=== PATIENT | male | born 1940 | race Caucasian/White ===

== ENCOUNTER 2016-07-04 21:55 | Inpatient (IN) | payer MEDICARE, MEDICAID ==
[2016-07-04] MEDS ORDERED: Furosemide 40 MG/4 ML VIAL IVPUSH ONE ×2 (22:23→23:52)
[2016-07-04] MEDS ORDERED: Albuterol/Ipratropium 3.0-0.5 MG/3 ML Neb Soln NEB ONE (22:23)
[2016-07-04] MEDS: Sodium Chloride 0.9% 10 ML Syringe FLUSH PRN ×2 (22:58→23:58)
--- NOTE | 2016-07-04 23:19 | EDM.PDOC ---
ED HISTORY OF PRESENT ILLNESS - General Chief Complaint: Respiratory Problem Stated Complaint: RESPIRATORY Time Seen by Provider: 07/04/16 22:15 Source: Reports: Patient History Limitations: Reports: No limitations - History of Present Illness INITIAL COMMENTS - FREE TEXT/NARRATIVE: c/o sob x 1w DNR, from group home, comes to ED at request of daughter, had been to ED in [place] 2d ago, not on antbxs, not on nebs has coarse BS although PO 95%, considerable edema in legs mouth breathing with noisy respirations, [facility] CPAP [facility] no fever here or [facility] he is transfered for CHF exacerbation wtih 3+ edema to [facility] in [facility] vs at [place] with HR 69, BP 68/42 (altho wnl here), T 97.8, RR 20 wt last 262 on 07-03-16, was 238 on 06-21-16 ADLs: assist with dress and toilit and eat, in chair most of time, has contractures, dependent for transfers, frequent incontinent of bladder PMH: CKD stage 3, muscle weakness, sepsis, Fe deficiency anemia d/t chronic blood loss, DM, HF, ABIDA, afib, osteoporosis, hypokalemia, BPH, deepression, constipation, gastritis, cellulitis PSH gastric surgery - Related Data Allergies/ADRs: Allergies Allergy/AdvReac Type Severity Reaction Status Date / Time Penicillins Allergy Cannot Verified 01/16/16 12:36 Remember Home Meds: Home Meds Insulin Detemir [Levemir] 10 unit SQ DAILY@0800 10/02/13 [History] Warfarin [Coumadin] 2.5 mg PO DAILY 10/02/13 [History] Insulin Detemir [Levemir] 4 unit SUBCUT BEDTIME 01/28/14 [History] Calcium Carbonate/Vitamin D3 [Calcium 600-Vit D3 800 Tablet] 1 tab PO BID [History] Cholecalciferol (Vitamin D3) [Vitamin D3] 1,000 units PO DAILY 09/22/14 [History ] Melatonin 3 mg PO BEDTIME 09/22/14 [History] Acetaminophen with Codeine [Tylenol with Codeine #3 Tablet] 2 tab PO TID [History] FLUoxetine HCl [Prozac] 10 mg PO DAILY 11/24/15 [History] Loperamide [Imodium] 2 mg PO ASDIRECTED 11/24/15 [History] Tamsulosin [Flomax] 0.4 mg PO DAILY 11/24/15 [History] Acetaminophen [Mapap] 650 mg PO Q4H PRN 12/31/15 [History] Alum Hydrox/Mag Hydrox/Simeth [Maalox Advanced] 15 ml PO Q4H PRN 12/31/15 [ History] Bisacodyl 10 mg RECTAL DAILY PRN 12/31/15 [History] Calcium Carbonate [Tums] 1,000 mg PO TID PRN 12/31/15 [History] Cholestyramine/Sucrose [Cholestyramine] 4 gm PO WITHBREAKFAST 12/31/15 [History] Dextromethorphan/guaiFENesin [Robitussin DM] 10 ml PO Q4H PRN 12/31/15 [History] Furosemide [Lasix] 60 mg PO DAILY 12/31/15 [History] Magnesium Hydroxide [Milk of Magnesia] 30 ml PO DAILY 12/31/15 [History] Multivitamin with Minerals [Ohg-R-Tgat-Minerals] 1 tab PO DAILY 12/31/15 [ History] Ondansetron [Zofran ODT] 4 mg SL Q4H PRN 12/31/15 [History] Pantoprazole [Protonix] 40 mg PO ACBREAKFAST 12/31/15 [History] Phytonadione [Vitamin K] 100 mcg PO DAILY 12/31/15 [History] Trolamine Salicylate/Aloe Vera [Aspercreme 10% Cream] 1 applic TOP DAILY [History] Ferrous Sulfate 325 mg PO BID 01/16/16 [History] Past Medical History HEENT History: Reports: None Cardiovascular History: Reports: Afib, Heart Failure, Hypertension Respiratory History: Reports: Sleep apnea Gastrointestinal History: Reports: None Genitourinary History: Reports: BPH, Chronic renal insuffiency Musculoskeletal History: Reports: Other (see below) Other Musculoskeletal History: has bilateral contractures legs Neurological History: Reports: None Psychiatric History: Reports: Depression Endocrine/Metabolic History: Reports: Diabetes, type II Hematologic History: Reports: None Immunologic History: Reports: None Oncologic (Cancer) History: Reports: None Dermatologic History: Reports: None - Infectious Disease History Infectious Disease History: Reports: MRSA - Past Surgical History Cardiovascular Surgical History: Reports: Pacer GI Surgical History: Reports: Appendectomy, Cholecystectomy Social & Family History - Family History Cardiac: Reports: CAD - Tobacco Use Smoking Status *Q: Unknown Ever Smoked Years of Tobacco use: 50 Used Tobacco, but Quit: Yes Second Hand Smoke Exposure: No - Caffeine Use Caffeine Use: Reports: None - Alcohol Use Days Per Week of Alcohol Use: 0 - Recreational Drug Use Recreational Drug Use: No - Living Situation & Occupation Living situation: Reports: , extended care facility Occupation: retired ED ROS GENERAL - Review of Systems Review Of Systems: See Below Constitutional: Reports: no symptoms HEENT: Reports: No symptoms Respiratory: Reports: shortness of breath, wheezing, cough, sputum Cardiovascular: Reports: No symptoms Endocrine: Reports: no symptoms GI/Abdominal: Reports: No symptoms : Reports: no symptoms Musculoskeletal: Reports: no symptoms Skin: Reports: other (LE edema) Neurological: Reports: no symptoms Psychiatric: Reports: No symptoms Hematologic/Lymphatic: Reports: no symptoms Immunologic: Reports: no symptoms ED EXAM, GENERAL - Physical Exam Exam: See Below Exam Limited By: No limitations General Appearance: alert, WD/WN, no apparent distress Eye Exam: bilateral eye: normal inspection Ears: normal external exam Nose: normal inspection Throat/Mouth: Normal inspection, Normal lips, Normal gums, Normal oropharynx, No airway compromise Head: atraumatic, normocephalic Neck: normal inspection, supple, non-tender Respiratory/Chest: other (fair AE, I/E wheezes, upper airway obstruction, on NC , not using CPAP, scattered rales b/l) Cardiovascular: normal peripheral pulses, regular rate, rhythm, no gallop, other (2/6 CHELO at LSB) GI/Abdominal: soft, non tender Extremities: other (3+ edema of LEs to knees b/l, mild rubra of skin d/t vascular congestion without evidence of cellulitis, 2+ edema from knees to groin b/l) Skin Exam: Warm, Dry, Intact, Normal color, No rash Lymphatic: no adenopathy Course - Vital Signs Last Recorded V/S: Last Vital Signs Temp 35.8 C 07/04/16 22:23 Pulse 84 07/04/16 22:23 Resp 20 07/04/16 22:23 BP 161/111 H 07/04/16 22:23 Pulse Ox 3 L 07/04/16 22:23 - Orders/Labs/Meds Orders: Active Orders 24 hr Category Date Time Status EKG Documentation Completion [RC] ASDIRECTED Care 07/04/16 23:06 Active Daniels Catheter Insertion [Insert Urinary Catheter] [OM. Care 07/04/16 23:15 Ordered PC] Q24H RT Aerosol Therapy [RC] ASDIRECTED Care 07/04/16 22:23 Active Urinary Catheter Assessment [RC] QSHIFT Care 07/04/16 23:04 Active Chest 1V Frontal [CR] Stat Exams 07/04/16 23:07 Ordered CULTURE BLOOD [BC] Urgent Lab 07/04/16 23:33 Received CULTURE SPUTUM + SMEAR [RM] Stat Lab 07/04/16 23:02 Uncollected INFLUENZA A+B AG SCREEN [RM] Stat Lab 07/04/16 23:04 Uncollected UA W/MICROSCOPIC [URIN] Stat Lab 07/04/16 23:02 Uncollected Sodium Chloride 0.9% [Saline Flush] Med 07/04/16 22:55 Active 10 ml FLUSH ASDIRECTED PRN Blood Culture x2 Reflex Set [OM.PC] Urgent Oth 07/04/16 23:05 Ordered Saline Lock Insert [OM.PC] Routine Oth 07/04/16 22:55 Ordered EKG 12 Lead [EK] Routine Ther 07/04/16 23:06 Ordered Medication Orders Sodium Chloride (Saline Flush) 10 ml FLUSH ASDIRECTED PRN PRN Reason: Keep Vein Open Last Admin: 07/04/16 23:58 Dose: 10 ml Admin: 07/04/16 22:58 Dose: 10 ml Labs: Laboratory Tests 07/04/16 07/04/16 07/04/16 Range/Units 23:33 23:33 23:33 WBC 9.8 (4.5-12.0) X10-3/uL RBC 2.81 L (4.30-5.75) x10(6)uL Hgb 7.9 L (11.5-15.5) g/dL Hct 28.1 L (30.0-51.3) % MCV 100.1 H (80-96) fL MCH 28.2 (27.7-33.6) pg MCHC 28.2 L (32.2-35.4) g/dL RDW 15.7 H (11.5-15.5) % Plt Count 187 (125-369) X10(3)uL MPV 8.3 (7.4-10.4) fL Add Manual Diff Yes Neutrophils % (Manual) 82 (46-82) % Band Neutrophils % 4 (0-6) % Lymphocytes % (Manual) 10 L (13-37) % Monocytes % (Manual) 4 (4-12) % PT (8.7-11.1) INR (0.89-1.13) Sodium 133 L (135-145) mmol/L Potassium 4.8 (3.5-5.3) mmol/L Chloride 104 (100-110) mmol/L Carbon Dioxide 22 L (23-29) mmol/L BUN 49 H D (8-23) mg/dL Creatinine 1.3 (0.6-1.3) mg/dL Est Cr Clr Drug Dosing 53.89 mL/min Estimated GFR (MDRD) 54 L (>60) BUN/Creatinine Ratio 37.7 H (9-20) Glucose 159 H D (80-116) mg/dL Lactic Acid 1.5 (0.5-2.2) mmol/L Calcium 7.6 L (8.6-10.2) mg/dL Total Bilirubin 1.4 H (0.1-1.3) mg/dL AST 35 H D (5-27) IU/L ALT 29 H D (14-26) IU/L Alkaline Phosphatase 286 H (56-112) IU/L Troponin I (0.02-0.06) NG/ML C-Reactive Protein 2.8 H* (0.0-1.0) mg/dL B-Natriuretic Peptide (0-100) pg/mL Total Protein 5.7 L (6.0-8.0) g/dL Albumin 2.3 L (3.2-4.6) g/dL Globulin 3.4 g/dL Albumin/Globulin Ratio 0.7 Digoxin (0.8-2.0) ng/mL 07/04/16 07/04/16 07/04/16 Range/Units 23:33 23:33 23:33 WBC (4.5-12.0) X10-3/uL RBC (4.30-5.75) x10(6)uL Hgb (11.5-15.5) g/dL Hct (30.0-51.3) % MCV (80-96) fL MCH (27.7-33.6) pg MCHC (32.2-35.4) g/dL RDW (11.5-15.5) % Plt Count (125-369) X10(3)uL MPV (7.4-10.4) fL Add Manual Diff Neutrophils % (Manual) (46-82) % Band Neutrophils % (0-6) % Lymphocytes % (Manual) (13-37) % Monocytes % (Manual) (4-12) % PT 17.7 H (8.7-11.1) INR 1.79 H (0.89-1.13) Sodium (135-145) mmol/L Potassium (3.5-5.3) mmol/L Chloride (100-110) mmol/L Carbon Dioxide (23-29) mmol/L BUN (8-23) mg/dL Creatinine (0.6-1.3) mg/dL Est Cr Clr Drug Dosing mL/min Estimated GFR (MDRD) (>60) BUN/Creatinine Ratio (9-20) Glucose (80-116) mg/dL Lactic Acid (0.5-2.2) mmol/L Calcium (8.6-10.2) mg/dL Total Bilirubin (0.1-1.3) mg/dL AST (5-27) IU/L ALT (14-26) IU/L Alkaline Phosphatase (56-112) IU/L Troponin I < 0.01 L (0.02-0.06) NG/ML C-Reactive Protein (0.0-1.0) mg/dL B-Natriuretic Peptide 334 H (0-100) pg/mL Total Protein (6.0-8.0) g/dL Albumin (3.2-4.6) g/dL Globulin g/dL Albumin/Globulin Ratio Digoxin (0.8-2.0) ng/mL 07/04/16 Range/Units 23:33 WBC (4.5-12.0) X10-3/uL RBC (4.30-5.75) x10(6)uL Hgb (11.5-15.5) g/dL Hct (30.0-51.3) % MCV (80-96) fL MCH (27.7-33.6) pg MCHC (32.2-35.4) g/dL RDW (11.5-15.5) % Plt Count (125-369) X10(3)uL MPV (7.4-10.4) fL Add Manual Diff Neutrophils % (Manual) (46-82) % Band Neutrophils % (0-6) % Lymphocytes % (Manual) (13-37) % Monocytes % (Manual) (4-12) % PT (8.7-11.1) INR (0.89-1.13) Sodium (135-145) mmol/L Potassium (3.5-5.3) mmol/L Chloride (100-110) mmol/L Carbon Dioxide (23-29) mmol/L BUN (8-23) mg/dL Creatinine (0.6-1.3) mg/dL Est Cr Clr Drug Dosing mL/min Estimated GFR (MDRD) (>60) BUN/Creatinine Ratio (9-20) Glucose (80-116) mg/dL Lactic Acid (0.5-2.2) mmol/L Calcium (8.6-10.2) mg/dL Total Bilirubin (0.1-1.3) mg/dL AST (5-27) IU/L ALT (14-26) IU/L Alkaline Phosphatase (56-112) IU/L Troponin I (0.02-0.06) NG/ML C-Reactive Protein (0.0-1.0) mg/dL B-Natriuretic Peptide (0-100) pg/mL Total Protein (6.0-8.0) g/dL Albumin (3.2-4.6) g/dL Globulin g/dL Albumin/Globulin Ratio Digoxin 0.9 (0.8-2.0) ng/mL Meds: Medications Generic Name Dose Route Start Last Admin Trade Name Freq PRN Reason Stop Dose Admin Sodium Chloride 10 ml 07/04/16 22:55 07/04/16 23:58 Saline Flush FLUSH 10 ml ASDIRECTED PRN Administration Keep Vein Open Discontinued Medications Generic Name Dose Route Start Last Admin Trade Name Freq PRN Reason Stop Dose Admin Albuterol/Ipratropium 3 ml 07/04/16 22:23 07/04/16 22:37 Duoneb 3.0-0.5 Mg/3 Ml NEB 07/04/16 22:24 3 ml ONETIME ONE Administration Furosemide 40 mg 07/04/16 22:23 07/04/16 22:36 Lasix IVPUSH 07/04/16 22:24 40 mg NOW ONE Administration Furosemide 40 mg 07/04/16 23:52 07/04/16 23:56 Lasix IVPUSH 07/04/16 23:53 40 mg NOW ONE Administration - Re-Assessments/Exams Free Text/Narrative Re-Assessment/Exam: 07/05/16 01:41 CxR shows cardiomegaly and clear lung cruz. No evidence of infection on CxR, yet will cover with azithromycin given inc'd CRP 2.8 and severity of dyspnea. Pt prerenal with high BUN/creat ratio. He needs to diurese about 20 pounds. Departure - Departure Time of Disposition: 01:45 Disposition: Admitted As Inpatient 67 Condition: fair Clinical Impression: Acute exacerbation of congestive heart failure, Weight gain, Prerenal azotemia , Peripheral edema, Macrocytic anemia Forms: ED Department Discharge - My Orders Last 24 Hours: My Active Orders 07/04/16 22:23 RT Aerosol Therapy [RC] ASDIRECTED 07/04/16 22:55 Sodium Chloride 0.9% [Saline Flush] 10 ml FLUSH ASDIRECTED PRN Saline Lock Insert [OM.PC] Routine 07/04/16 23:02 CULTURE SPUTUM + SMEAR [RM] Stat UA W/MICROSCOPIC [URIN] Stat 07/04/16 23:04 Urinary Catheter Assessment [RC] QSHIFT INFLUENZA A+B AG SCREEN [RM] Stat 07/04/16 23:05 Blood Culture x2 Reflex Set [OM.PC] Urgent 07/04/16 23:06 EKG Documentation Completion [RC] ASDIRECTED EKG 12 Lead [EK] Routine 07/04/16 23:07 Chest 1V Frontal [CR] Stat 07/04/16 23:15 Daniels Catheter Insertion [Insert Urinary Catheter] [OM.PC] Q24H 07/04/16 23:33 CULTURE BLOOD [BC] Urgent - Assessment/Plan Last 24 Hours: My Active Orders 07/04/16 22:23 RT Aerosol Therapy [RC] ASDIRECTED 07/04/16 22:55 Sodium Chloride 0.9% [Saline Flush] 10 ml FLUSH ASDIRECTED PRN Saline Lock Insert [OM.PC] Routine 07/04/16 23:02 CULTURE SPUTUM + SMEAR [RM] Stat UA W/MICROSCOPIC [URIN] Stat 07/04/16 23:04 Urinary Catheter Assessment [RC] QSHIFT INFLUENZA A+B AG SCREEN [RM] Stat 07/04/16 23:05 Blood Culture x2 Reflex Set [OM.PC] Urgent 07/04/16 23:06 EKG Documentation Completion [RC] ASDIRECTED EKG 12 Lead [EK] Routine 07/04/16 23:07 Chest 1V Frontal [CR] Stat 07/04/16 23:15 Daniels Catheter Insertion [Insert Urinary Catheter] [OM.PC] Q24H 07/04/16 23:33 CULTURE BLOOD [BC] Urgent
[2016-07-05] MEDS ORDERED: Ondansetron 4 MG/2 ML SDV IV PRN (01:53)
[2016-07-05] MEDS ORDERED: Acetaminophen 325 MG Tab PO PRN (01:53)
[2016-07-05] MEDS ORDERED: Azithromycin 500 MG in Sodium Chloride 0.9% 250 ML IV SCH (02:00)
[2016-07-05] MEDS ORDERED: Bisacodyl 10 MG Supp RECTAL PRN (02:01)
[2016-07-05] MEDS ORDERED: Calcium Carbonate 500 MG Tab.Chew PO PRN (02:01)
[2016-07-05] MEDS: Sodium Chloride 0.9% 250 ML IV SCH (03:47)
[2016-07-05] MEDS: Albuterol/Ipratropium 3.0-0.5 MG/3 ML Neb Soln INH SCH ×3 (04:52→15:47)
[2016-07-05] MEDS ORDERED: Furosemide 40 MG/4 ML VIAL IVPUSH SCH ×2 (06:00→09:00)
[2016-07-05] MEDS: Sodium Chloride 0.9% 10 ML Syringe FLUSH PRN (06:12)
[2016-07-05] MEDS: Pantoprazole 40 MG Tab.CR PO SCH (07:20)
[2016-07-05] MEDS ORDERED: Insulin Detemir 100 Units/ML 3 ML Pen SUBCUT SCH ×2 (08:00→21:00)
[2016-07-05] MEDS ORDERED: Metolazone 2.5 MG Tab PO ONE (08:17)
--- NOTE | 2016-07-05 08:33 | PCM.HP ---
H&P History of Present Illness - General Date of Service: 07/05/16 Admit Problem/Dx: Admission Diagnosis/Problem Admission Diagnosis/Problem Heart failure Source of Information: Patient - History of Present Illness Initial Comments - Free Text/Narative: This is a 76-year-old female patient with known history of CHF, anemia, atrial fibrillation. He's had a 20 pound weight gain loss of swelling in his legs and scrotum. He was evaluated over here after his daughter requested he be seen. He's currently on Lasix 80 mg a day. He denies shortness of breath, chest pain , fevers, chills, cough. Bilateral Ankle Pain Score (Numeric/FACES): 10 - Related Data Allergies/Adverse Reactions: Allergies Allergy/AdvReac Type Severity Reaction Status Date / Time Penicillins Allergy Cannot Verified 07/05/16 03:48 Remember Home Medications: Home Meds Insulin Detemir [Levemir] 10 unit SQ DAILY@0800 10/02/13 [History] Warfarin [Coumadin] 2.5 mg PO DAILY 10/02/13 [History] Insulin Detemir [Levemir] 4 unit SUBCUT BEDTIME 01/28/14 [History] Calcium Carbonate/Vitamin D3 [Calcium 600-Vit D3 800 Tablet] 1 tab PO BID [History] Cholecalciferol (Vitamin D3) [Vitamin D3] 1,000 units PO DAILY 09/22/14 [History ] Melatonin 3 mg PO BEDTIME 09/22/14 [History] Acetaminophen with Codeine [Tylenol with Codeine #3 Tablet] 2 tab PO TID [History] FLUoxetine HCl [Prozac] 10 mg PO DAILY 11/24/15 [History] Loperamide [Imodium] 2 mg PO ASDIRECTED 11/24/15 [History] Tamsulosin [Flomax] 0.4 mg PO DAILY 11/24/15 [History] Acetaminophen [Mapap] 650 mg PO Q4H PRN 12/31/15 [History] Alum Hydrox/Mag Hydrox/Simeth [Maalox Advanced] 15 ml PO Q4H PRN 12/31/15 [ History] Bisacodyl 10 mg RECTAL DAILY PRN 12/31/15 [History] Calcium Carbonate [Tums] 1,000 mg PO TID PRN 12/31/15 [History] Cholestyramine/Sucrose [Cholestyramine] 4 gm PO WITHBREAKFAST 12/31/15 [History] Dextromethorphan/guaiFENesin [Robitussin DM] 10 ml PO Q4H PRN 12/31/15 [History] Furosemide [Lasix] 60 mg PO DAILY 12/31/15 [History] Magnesium Hydroxide [Milk of Magnesia] 30 ml PO DAILY 12/31/15 [History] Multivitamin with Minerals [Ydr-Q-Hwim-Minerals] 1 tab PO DAILY 12/31/15 [ History] Ondansetron [Zofran ODT] 4 mg SL Q4H PRN 12/31/15 [History] Pantoprazole [Protonix] 40 mg PO ACBREAKFAST 12/31/15 [History] Phytonadione [Vitamin K] 100 mcg PO DAILY 12/31/15 [History] Trolamine Salicylate/Aloe Vera [Aspercreme 10% Cream] 1 applic TOP DAILY [History] Ferrous Sulfate 325 mg PO BID 01/16/16 [History] Past Medical History HEENT History: Reports: None Cardiovascular History: Reports: Afib, Heart Failure, Hypertension Respiratory History: Reports: Sleep apnea Gastrointestinal History: Reports: None Genitourinary History: Reports: BPH, Chronic renal insuffiency Musculoskeletal History: Reports: Other (see below) Other Musculoskeletal History: has bilateral contractures legs Neurological History: Reports: None Psychiatric History: Reports: Depression Endocrine/Metabolic History: Reports: Diabetes, type II Hematologic History: Reports: None Immunologic History: Reports: None Oncologic (Cancer) History: Reports: None Dermatologic History: Reports: None, Other (see below) Other Dermatologic History: many rashy patches that pt sts itch - Infectious Disease History Infectious Disease History: 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, MRSA, Shingles - Past Surgical History Cardiovascular Surgical History: Reports: Pacer GI Surgical History: Reports: Appendectomy, Cholecystectomy Social & Family History - Family History Family Medical History: Noncontributory Cardiac: Reports: CAD - Tobacco Use Smoking Status *Q: Never Smoker Years of Tobacco use: 50 Used Tobacco, but Quit: Yes Second Hand Smoke Exposure: No - Caffeine Use Caffeine Use: Reports: Coffee - Alcohol Use Days Per Week of Alcohol Use: 0 - Recreational Drug Use Recreational Drug Use: No - Living Situation & Occupation Living situation: Reports: , extended care facility Occupation: retired H&P Review of Systems - Review of Systems: Review Of Systems: See Below General: Reports: no symptoms HEENT: Reports: no symptoms Pulmonary: Reports: no symptoms Cardiovascular: Reports: no symptoms (Or concerns), edema. Denies: chest pain Gastrointestinal: Reports: No symptoms, Abdominal pain Genitourinary: Reports: other (Swelling scrotum) Musculoskeletal: Reports: other (Leg pain) Psychiatric: Reports: no symptoms Neurological: Reports: no symptoms Hematologic/Lymphatic: Reports: no symptoms Immunologic: Reports: no symptoms Exam - Exam Exam: See Below - Vital Signs Vital Signs: Last Vital Signs Temp 98.4 F 07/05/16 02:54 Pulse 76 07/05/16 02:54 Resp 20 07/05/16 02:54 BP 108/55 L 07/05/16 02:54 Pulse Ox 94 L 07/05/16 04:40 Weight: 261 lb 8 oz - Exam General: alert, oriented, cooperative HEENT: Hearing intact, Nares patent, Posterior pharynx clear, Pupils reactive Neck: supple, trachea midline. No: JVD Lungs: Clear to auscultation, Normal respiratory effort. No: Crackles, Rales, Rhonchi Cardiovascular: regular rate, regular rhythm, systolic murmur. No: diastolic murmur Abdomen: normal bowel sounds, soft, organomegaly Back Exam: normal inspection Extremities: edema Skin: warm, dry, intact Neurological: normal speech, normal tone Neuro Extensive - Mental Status: alert, normal cognition Neuro Extensive - Motor, Sensory, Reflexes: No: normal gait Psychiatric: alert - Patient Data Lab Results last 24 hrs: Laboratory Results - last 24 hr 07/05/16 07/05/16 07/05/16 Range/Units 02:50 07:19 07:30 WBC 7.7 (4.5-12.0) X10-3/uL RBC 2.47 L (4.30-5.75) x10(6)uL Hgb 8.0 L (11.5-15.5) g/dL Hct 24.5 L (30.0-51.3) % MCV 99.1 H (80-96) fL MCH 32.5 (27.7-33.6) pg MCHC 32.8 (32.2-35.4) g/dL RDW 15.9 H (11.5-15.5) % Plt Count 165 (125-369) X10(3)uL MPV 8.3 (7.4-10.4) fL Add Manual Diff Yes Neutrophils % (Manual) 87 H (46-82) % Band Neutrophils % 1 (0-6) % Lymphocytes % (Manual) 8 L (13-37) % Monocytes % (Manual) 3 L (4-12) % Eosinophils % (Manual) 1 (0-5) % Anisocytosis Few Sodium (135-145) mmol/L Potassium (3.5-5.3) mmol/L Chloride (100-110) mmol/L Carbon Dioxide (23-29) mmol/L BUN (8-23) mg/dL Creatinine (0.6-1.3) mg/dL Est Cr Clr Drug Dosing mL/min Estimated GFR (MDRD) (>60) BUN/Creatinine Ratio (9-20) Glucose (80-116) mg/dL POC Glucose 119 H (80-116) mg/dL Calcium (8.6-10.2) mg/dL Urine Color Yellow (YELLOW) Urine Appearance Clear (CLEAR) Urine pH 5.0 (5.0-6.5) Ur Specific [place] 1.020 (1.010-1.025) Urine Protein Negative (NEGATIVE) mg/dL Urine Glucose (UA) Normal (NEGATIVE) mg/dL Urine Ketones Negative (NEGATIVE) mg/dL Urine Occult Blood Negative (NEGATIVE) Urine Nitrite Negative (NEGATIVE) Urine Bilirubin Negative (NEGATIVE) Urine Urobilinogen Normal (NEGATIVE) mg/dL Ur Leukocyte Esterase Negative (NEGATIVE) Urine RBC 0-5 (0) Urine WBC 0-5 (0) Ur Squamous Epith Cells Occasional (NS,R,O) Urine Bacteria Rare H (NS) 07/05/16 Range/Units 07:30 WBC (4.5-12.0) X10-3/uL RBC (4.30-5.75) x10(6)uL Hgb (11.5-15.5) g/dL Hct (30.0-51.3) % MCV (80-96) fL MCH (27.7-33.6) pg MCHC (32.2-35.4) g/dL RDW (11.5-15.5) % Plt Count (125-369) X10(3)uL MPV (7.4-10.4) fL Add Manual Diff Neutrophils % (Manual) (46-82) % Band Neutrophils % (0-6) % Lymphocytes % (Manual) (13-37) % Monocytes % (Manual) (4-12) % Eosinophils % (Manual) (0-5) % Anisocytosis Sodium 135 (135-145) mmol/L Potassium 4.0 (3.5-5.3) mmol/L Chloride 104 (100-110) mmol/L Carbon Dioxide 23 (23-29) mmol/L BUN 50 H (8-23) mg/dL Creatinine 1.3 (0.6-1.3) mg/dL Est Cr Clr Drug Dosing 53.89 mL/min Estimated GFR (MDRD) 54 L (>60) BUN/Creatinine Ratio 38.5 H (9-20) Glucose 100 (80-116) mg/dL POC Glucose (80-116) mg/dL Calcium 7.7 L (8.6-10.2) mg/dL Urine Color (YELLOW) Urine Appearance (CLEAR) Urine pH (5.0-6.5) Ur Specific [place] (1.010-1.025) Urine Protein (NEGATIVE) mg/dL Urine Glucose (UA) (NEGATIVE) mg/dL Urine Ketones (NEGATIVE) mg/dL Urine Occult Blood (NEGATIVE) Urine Nitrite (NEGATIVE) Urine Bilirubin (NEGATIVE) Urine Urobilinogen (NEGATIVE) mg/dL Ur Leukocyte Esterase (NEGATIVE) Urine RBC (0) Urine WBC (0) Ur Squamous Epith Cells (NS,R,O) Urine Bacteria (NS) Result Diagrams: 07/05/16 07:30 07/05/16 07:30 Grant Results last 24 hrs: Microbiology 07/05/16 02:15 Influenza Type A Antigen Screen - Final Nasal, Right NEGATIVE INFLUENZA A VIRUS AG Influenza Type B Antigen Screen - Final NEGATIVE INFLUENZA B VIRUS AG *Q Meaningful Use (ADM) - VTE *Q VTE Criteria *Q: - Stroke *Q Stroke Criteria *Q: - AMI *Q AMI Criteria *Q: - Problem List (1) Anemia SNOMED Code(s): 597298162 ICD Code: D64.9 - ANEMIA, UNSPECIFIED Status: Acute Current Visit: Yes Qualifiers: Anemia type: iron deficiency (2) Acute exacerbation of congestive heart failure SNOMED Code(s): 31445127 ICD Code: I50.9 - HEART FAILURE, UNSPECIFIED Status: Acute Current Visit : Yes Problem List Initiated/Reviewed/Updated: Yes Orders Last 24hrs: Active Orders 24 hr Category Date Time Status Acetaminophen/Codeine [Tylenol with Codeine No.3 300MG/ Med 07/05/16 09:00 Ordered 30MG] 2 tab PO TID Bisacodyl [Dulcolax] Med 07/05/16 02:01 Active 10 mg RECTAL DAILY PRN Calcium Carbonate [Tums] Med 07/05/16 02:01 Active 1,000 mg PO TID PRN Cholestyramine/Sucrose [Cholestyramine Packet] Med 07/05/16 08:00 Active 4 gm PO WITHBREAKFAST FLUoxetine [PROzac] Med 07/05/16 09:00 Active 10 mg PO DAILY Ferrous Sulfate Med 07/05/16 09:00 Active 325 mg PO BID Furosemide [Lasix] Med 07/05/16 09:00 Once 80 mg IVPUSH NOW ONE Insulin Detemir [Levemir] Med 07/05/16 08:00 Active 10 unit SUBCUT DAILY@0800 Insulin Detemir [Levemir] Med 07/05/16 21:00 Active 4 unit SUBCUT BEDTIME Melatonin Med 07/05/16 21:00 Active 3 mg PO BEDTIME Multivitamin with Minerals [Xvi-Z-Ffdm-Minerals] Med 07/05/16 09:00 Active 1 tab PO DAILY Pantoprazole [Protonix] Med 07/05/16 07:30 Active 40 mg PO ACBREAKFAST Sodium Chloride 0.9% [Normal Saline] 250 ml Med 07/05/16 03:45 Active IV ASDIRECTED Tamsulosin [Flomax] Med 07/05/16 09:00 Active 0.4 mg PO DAILY Warfarin [Coumadin] Med 07/05/16 09:00 Active 2.5 mg PO DAILY Medication Orders Acetaminophen (Tylenol) 650 mg PO Q4H PRN PRN Reason: Pain (Mild 1-3)/fever Acetaminophen/Codeine Phosphate (Tylenol With Codeine No.3 300mg/30mg) 2 tab PO TID WANDA Albuterol/Ipratropium (Duoneb 3.0-0.5 Mg/3 Ml) 3 ml INH Q6H WANDA Last Admin: 07/05/16 04:52 Dose: 3 ml Bisacodyl (Dulcolax) 10 mg RECTAL DAILY PRN PRN Reason: Constipation Calcium Carbonate/Glycine (Tums) 1,000 mg PO TID PRN PRN Reason: Heartburn Cholestyramine Resin (Cholestyramine Packet) 4 gm PO WITHBREAKFAST [facility] Ferrous Sulfate (Ferrous Sulfate) 325 mg PO BID WANDA Fluoxetine HCl (Prozac) 10 mg PO DAILY [facility] Furosemide (Lasix) 80 mg IVPUSH NOW ONE Stop: 07/05/16 09:01 Azithromycin 500 mg/ Sodium (Chloride) 250 mls @ 250 mls/hr IV Q24H [facility] Last Admin: 07/05/16 03:42 Dose: 250 mls/hr Sodium Chloride (Normal Saline) 250 mls @ 100 mls/hr IV ASDIRECTED [facility] Last Admin: 07/05/16 03:47 Dose: 100 mls/hr Insulin Detemir (Levemir) 4 unit SUBCUT BEDTIME [facility] Insulin Detemir (Levemir) 10 unit SUBCUT DAILY@0800 [facility] Melatonin (Melatonin) 3 mg PO BEDTIME [facility] Non-Formulary Medication (Multivitamin With Minerals [Qkd-D-Asol-Minerals]) 1 tab PO DAILY [facility] Ondansetron HCl (Zofran) 4 mg IV Q4H PRN PRN Reason: Nausea/Vomiting Pantoprazole Sodium (Protonix) 40 mg PO ACBREAKFAST [facility] Last Admin: 07/05/16 07:20 Dose: 40 mg Sodium Chloride (Saline Flush) 10 ml FLUSH ASDIRECTED PRN PRN Reason: Keep Vein Open Last Admin: 07/05/16 06:12 Dose: 10 ml Admin: 07/04/16 23:58 Dose: 10 ml Admin: 07/04/16 22:58 Dose: 10 ml Tamsulosin HCl (Flomax) 0.4 mg PO DAILY [facility] Warfarin Sodium (Coumadin) 2.5 mg PO DAILY [facility] Assessment/Plan Comment:: 1. Metolazone 2.5 mg then 30 minutes later Lasix 80 mg IV. 2. Discuss blood transfusion with this patient. His hemoglobin is below 8 and I think a transfusion would help his cardiac function. He's okay with going ahead with 2 units. Risks and benefits explained in and consent verbally was obtained. 3. Daily weights. 4. Patient refuses EKG and Daniels catheter. 5. Regular diet.
[2016-07-05] MEDS ORDERED: FLUoxetine 10 MG Cap PO SCH (09:00)
[2016-07-05] MEDS ORDERED: Sodium Chloride 0.9% 250 ML IV SCH (09:00)
[2016-07-05] MEDS ORDERED: Warfarin 5 MG Tab PO SCH (09:00)
[2016-07-05] MEDS ORDERED: Furosemide 100 MG/10 ML SDV IVPUSH ONE (09:00)
[2016-07-05] MEDS: Cholestyramine/Sucrose Powder 4 GM Packet PO SCH (09:51)
[2016-07-05] MEDS: Multivitamins, Therapeutic with Minerals Tab PO SCH (09:52)
[2016-07-05] MEDS: Tamsulosin 0.4 MG Cap.ER PO SCH (09:52)
[2016-07-05] MEDS: Ferrous Sulfate 325 MG Tab PO SCH ×2 (09:52→21:05)
[2016-07-05] MEDS ORDERED: Acetaminophen/Codeine 300-30 MG Tab ONE (09:59)
[2016-07-05] MEDS: Acetaminophen/Codeine 300-30 MG Tab PO SCH ×3 (10:00→21:06)
[2016-07-05] MEDS ORDERED: Warfarin Sliding Scale PO SCH (10:00)
[2016-07-05] MEDS ORDERED: Furosemide 40 MG/4 ML VIAL IVPUSH ONE ×2 (10:21→14:00)
[2016-07-05] MEDS: Digoxin 125 MCG Tab PO SCH (11:14)
[2016-07-05] MEDS: FLUoxetine 20 MG Cap PO SCH (11:14)
[2016-07-05] MEDS: Spironolactone 25 MG Tab PO SCH (11:15)
--- NOTE | 2016-07-05 11:38 | CR ---
INDICATION: Short of breath, cough. CHEST: Two AP semi-upright views of the chest were obtained portable 2016 and compared with 12/31/2015 and 09/22/2014, revealing unipolar pacemaker lead unchanged in position. The heart is enlarged as previously. Upper lung field pulmonary vasculature is prominent, raising question of CHF. There appears to be some increased markings centrally, raising question of lung edema. This should be correlated clinically. A process such as aspiration pneumonia would also be a consideration. Evidence of exogenous obesity is again noted. No focal consolidating pneumonia or effusion was seen. IMPRESSION: Cardiomegaly and CHF suggested, possibly with interstitial lung edema. Cannot exclude pneumonia, however. MTDD
[2016-07-05] MEDS: Acetaminophen/HYDROcodone 325-5 MG Tab PO PRN (15:42)
[2016-07-05] MEDS ORDERED: Warfarin 2.5 MG Tab PO SCH (16:00)
[2016-07-05] MEDS ORDERED: Warfarin 2.5 MG Tab PO ONE (16:00)
[2016-07-05] MEDS: hydrOXYzine HCl 25 MG Tab PO SCH (21:13)
[2016-07-05] MEDS: Melatonin 3 MG Tab PO SCH (21:36)
[2016-07-06] MEDS ORDERED: Vancomycin 1 GM AdvVial ONE (01:11)
[2016-07-06] MEDS: Acetaminophen/HYDROcodone 325-5 MG Tab PO PRN (04:43)
[2016-07-06] MEDS: Albuterol/Ipratropium 3.0-0.5 MG/3 ML Neb Soln INH SCH ×4 (04:44→21:49)
[2016-07-06] MEDS ORDERED: Vancomycin 1 GM SDV IV SCH (08:00)
[2016-07-06] MEDS: Pantoprazole 40 MG Tab.CR PO SCH (08:43)
[2016-07-06] MEDS: Ferrous Sulfate 325 MG Tab PO SCH ×2 (08:43→21:46)
[2016-07-06] MEDS: Cholestyramine/Sucrose Powder 4 GM Packet PO SCH (08:43)
[2016-07-06] MEDS: Multivitamins, Therapeutic with Minerals Tab PO SCH (08:44)
[2016-07-06] MEDS: Digoxin 125 MCG Tab PO SCH (08:44)
[2016-07-06] MEDS: FLUoxetine 20 MG Cap PO SCH (08:44)
[2016-07-06] MEDS: Tamsulosin 0.4 MG Cap.ER PO SCH (08:44)
[2016-07-06] MEDS: Acetaminophen/Codeine 300-30 MG Tab PO SCH ×3 (08:44→21:45)
[2016-07-06] MEDS: Spironolactone 25 MG Tab PO SCH (08:45)
--- NOTE | 2016-07-06 09:14 | PCM.PN ---
- General Info Date of Service: 07/06/16 Admission Dx/Problem (Free Text): The patient states he feels better today. He states his ankles hurt when he is on his ankles these up in a Oksana chair. He denies fevers, chills, sore throat, ear pain, chest pain, shortness of breath or cough. He still has a swelling in his lower extremities. - Patient Data Vitals - most recent: Last Vital Signs Temp 98.3 F 07/06/16 08:00 Pulse 70 07/06/16 08:44 Resp 18 07/06/16 08:00 BP 86/44 L 07/06/16 08:00 Pulse Ox 92 L 07/06/16 08:00 Weight - most recent: 261 lb 4.8 oz I&O - last 24 hours: Intake & Output 07/05/16 07/06/16 07/06/16 22:59 06:59 14:59 Intake Total 390 690 Output Total 700 Balance 390 -10 Lab Results last 24 hrs: Laboratory Results - last 24 hr 07/05/16 07/05/16 07/05/16 Range/Units 07:30 11:56 22:37 POC Glucose 164 H 116 (80-116) mg/dL Blood Type O POSITIVE Gel Antibody Screen Negative Crossmatch See Detail 07/06/16 Range/Units 05:35 POC Glucose 65 L (80-116) mg/dL Blood Type Gel Antibody Screen Crossmatch Med Orders - Current: Current Medications Acetaminophen (Tylenol) 650 mg PO Q4H PRN PRN Reason: Pain (Mild 1-3)/fever Acetaminophen/Codeine Phosphate (Tylenol With Codeine No.3 300mg/30mg) 2 tab PO TID [facility] Last Admin: 07/06/16 08:44 Dose: 2 tab Acetaminophen/Hydrocodone Bitart ([place] 325-5 Mg) 1 tab PO Q4H PRN PRN Reason: Pain Last Admin: 07/06/16 04:43 Dose: 1 tab Albuterol/Ipratropium (Duoneb 3.0-0.5 Mg/3 Ml) 3 ml INH Q6H [facility]ANDA Last Admin: 07/06/16 04:44 Dose: 3 ml Bisacodyl (Dulcolax) 10 mg RECTAL DAILY PRN PRN Reason: Constipation Calcium Carbonate/Glycine (Tums) 1,000 mg PO TID PRN PRN Reason: Heartburn Cholestyramine Resin (Cholestyramine Packet) 4 gm PO WITHBREAKFAST [facility] Last Admin: 07/06/16 08:43 Dose: 4 gm Digoxin (Lanoxin) 125 mcg PO DAILY [facility] Last Admin: 07/06/16 08:44 Dose: 125 mcg Ferrous Sulfate (Ferrous Sulfate) 325 mg PO BID [facility] Last Admin: 07/06/16 08:43 Dose: 325 mg Fluoxetine HCl (Prozac) 20 mg PO DAILY [facility] Last Admin: 07/06/16 08:44 Dose: 20 mg Furosemide (Lasix) 40 mg IVPUSH BID [facility] Hydroxyzine HCl (Atarax) 25 mg PO BEDTIME [facility] Last Admin: 07/05/16 21:13 Dose: 25 mg Sodium Chloride (Normal Saline) 250 mls @ 100 mls/hr IV ASDIRECTED [facility] Last Admin: 07/05/16 03:47 Dose: 100 mls/hr Sodium Chloride (Normal Saline) 250 mls @ 100 mls/hr IV ASDIRECTED [facility] Last Admin: 07/06/16 01:50 Dose: 100 mls/hr Melatonin (Melatonin) 3 mg PO BEDTIME [facility] Morphine Sulfate (Morphine) 2 mg IVPUSH Q2H PRN PRN Reason: Pain Multivitamins/Minerals (Vitamins And Minerals) 1 tab PO DAILY [facility] Last Admin: 07/06/16 08:44 Dose: 1 tab Ondansetron HCl (Zofran) 4 mg IV Q4H PRN PRN Reason: Nausea/Vomiting Pantoprazole Sodium (Protonix) 40 mg PO ACBREAKFAST [facility] Last Admin: 07/06/16 08:43 Dose: 40 mg Sodium Chloride (Saline Flush) 10 ml FLUSH ASDIRECTED PRN PRN Reason: Keep Vein Open Last Admin: 07/05/16 06:12 Dose: 10 ml Spironolactone (Aldactone) 12.5 mg PO DAILY [facility] Last Admin: 07/06/16 08:45 Dose: Not Given Tamsulosin HCl (Flomax) 0.4 mg PO DAILY [facility] Last Admin: 07/06/16 08:44 Dose: 0.4 mg Vancomycin HCl (Vancomycin) 0 gm IV .PHARMACY TO DOSE [facility] Warfarin Sodium (Coumadin Sliding Scale) 0 each PO ASDIRECTED [facility] Discontinued Medications Acetaminophen/Codeine Phosphate (Tylenol With Codeine No.3 300mg/30mg) Confirm Administered Dose 1 tab .ROUTE .STK-MED ONE Stop: 07/05/16 10:00 Last Admin: 07/05/16 10:02 Dose: Not Given Albuterol/Ipratropium (Duoneb 3.0-0.5 Mg/3 Ml) 3 ml NEB ONETIME ONE Stop: 07/04/16 22:24 Last Admin: 07/04/16 22:37 Dose: 3 ml Furosemide (Lasix) 40 mg IVPUSH NOW ONE Stop: 07/04/16 22:24 Last Admin: 07/04/16 22:36 Dose: 40 mg Furosemide (Lasix) 40 mg IVPUSH NOW ONE Stop: 07/04/16 23:53 Last Admin: 07/04/16 23:56 Dose: 40 mg Furosemide (Lasix) 40 mg IVPUSH TID [facility] Last Admin: 07/05/16 06:12 Dose: 40 mg Furosemide (Lasix) 80 mg IVPUSH NOW ONE Stop: 07/05/16 09:01 Last Admin: 07/05/16 10:36 Dose: Not Given Furosemide (Lasix) 40 mg IVPUSH NOW ONE Stop: 07/05/16 10:22 Last Admin: 07/05/16 11:14 Dose: 40 mg Furosemide (Lasix) 40 mg IVPUSH NOW ONE Stop: 07/05/16 14:01 Azithromycin 500 mg/ Sodium (Chloride) 250 mls @ 250 mls/hr IV Q24H [facility] Last Admin: 07/05/16 03:42 Dose: 250 mls/hr Vancomycin HCl 1,000 mg/ (Dextrose/Water) 250 mls @ 167 mls/hr IV ONETIME ONE Stop: 07/06/16 02:29 Last Admin: 07/06/16 03:35 Dose: Not Given Vancomycin HCl 1 gm/ Dextrose/ (Water) 250 mls @ 167 mls/hr IV ONETIME ONE Stop: 07/06/16 02:29 Last Admin: 07/06/16 01:55 Dose: 167 mls/hr Metolazone (Zaroxolyn) 2.5 mg PO ONETIME ONE Stop: 07/05/16 08:18 Last Admin: 07/05/16 09:51 Dose: 2.5 mg Vancomycin HCl (Vancocin) Confirm Administered Dose 1 gm .ROUTE .STK-MED ONE Stop: 07/06/16 01:12 Last Admin: 07/06/16 03:32 Dose: Not Given Warfarin Sodium (Coumadin) 2.5 mg PO DAILY [facility] Warfarin Sodium (Coumadin) 2.5 mg PO 1600 [facility] Warfarin Sodium (Coumadin) 2.5 mg PO ONETIME ONE Stop: 07/05/16 16:01 Last Admin: 07/05/16 16:12 Dose: 2.5 mg - Exam General: alert, oriented, cooperative Lungs: Clear to auscultation, Normal respiratory effort. No: Crackles, Rales, Rhonchi Cardiovascular: regular rate, regular rhythm, murmurs Extremities: edema (Worse tremors into his groin with mild erythema) Skin: warm, intact Psy/Mental Status: alert, normal affect, normal mood - Problem List & Annotations (1) Anemia SNOMED Code(s): 251017581 Code(s): D64.9 - ANEMIA, UNSPECIFIED Status: Acute Current Visit: Yes Qualifiers: Anemia type: iron deficiency (2) Acute exacerbation of congestive heart failure SNOMED Code(s): 90133316 Code(s): I50.9 - HEART FAILURE, UNSPECIFIED Status: Acute Current Visit: Yes (3) Pulmonary hypertension SNOMED Code(s): 80480096 Code(s): I27.2 - OTHER SECONDARY PULMONARY HYPERTENSION Status: Acute Current Visit: Yes (4) Aortic stenosis, moderate SNOMED Code(s): 01167738 Code(s): I35.0 - NONRHEUMATIC AORTIC (VALVE) STENOSIS Status: Acute Current Visit: Yes (5) Positive blood culture SNOMED Code(s): 248082187 Code(s): R78.81 - BACTEREMIA Status: Acute Current Visit: Yes (6) Palliative care status SNOMED Code(s): 880776669 Code(s): Z51.5 - ENCOUNTER FOR PALLIATIVE CARE Status: Acute Current Visit: Yes - Problem List Review Problem List Initiated/Reviewed/Updated: Yes - My Orders Last 24 Hours: My Active Orders 07/05/16 08:58 Transfuse Red Blood Cells [COMM] Routine 07/05/16 09:00 Acetaminophen/Codeine [Tylenol with Codeine No.3 300MG/30MG] 2 tab PO TID Sodium Chloride 0.9% [Normal Saline] 250 ml IV ASDIRECTED 07/05/16 10:00 Digoxin [Lanoxin] 125 mcg PO DAILY FLUoxetine [PROzac] 20 mg PO DAILY Spironolactone [Aldactone] 12.5 mg PO DAILY Warfarin Sliding Scale [Coumadin Sliding Scale] See Dose Instructions PO ASDIRECTED 07/05/16 12:29 Acetaminophen/HYDROcodone [[place] 325-5 MG] 1 tab PO Q4H PRN 07/05/16 13:33 Morphine 2 mg IVPUSH Q2H PRN 07/05/16 21:00 hydrOXYzine HCl [Atarax] 25 mg PO BEDTIME 07/06/16 06:00 B-TYPE NATRIURETIC PEPTIDE,BNP [CHEM] AM CBC WITH AUTO DIFF [HEME] Routine INR,PT,PROTHROMBIN TIME [COAG] DAILY Convert IV to Saline Lock [OM.PC] Routine 07/06/16 09:15 BASIC METABOLIC PANEL,BMP [CHEM] AM 07/06/16 21:00 Furosemide [Lasix] 40 mg IVPUSH BID 07/07/16 06:00 INR,PT,PROTHROMBIN TIME [COAG] DAILY 07/08/16 06:00 INR,PT,PROTHROMBIN TIME [COAG] DAILY 07/09/16 06:00 INR,PT,PROTHROMBIN TIME [COAG] DAILY 07/10/16 06:00 INR,PT,PROTHROMBIN TIME [COAG] DAILY 07/11/16 06:00 INR,PT,PROTHROMBIN TIME [COAG] DAILY 07/12/16 06:00 INR,PT,PROTHROMBIN TIME [COAG] DAILY - Plan Plan:: 1. wrap his legs twice a day with Rolando wraps. 2. Vancomycin was started last night for his one out of two positive blood cultures. Pharmacy to manage the peaks and troughs. 3. CBC and panel 8 this a.m. Patient refused the lab. But he would do it for me. Patient needs to be told that he needs his labs and Y. and he probably will go ahead and do it. 4. Lasix 40 mg IV twice a day. 5. Palliative care. He has end-stage CHF, pulmonary hypertension and aortic stenosis.
[2016-07-06] MEDS: Furosemide 40 MG/4 ML VIAL IVPUSH SCH ×2 (10:39→21:55)
[2016-07-06] MEDS: Sodium Chloride 0.9% 10 ML Syringe FLUSH PRN (10:41)
[2016-07-06] MEDS: hydrOXYzine HCl 25 MG Tab PO SCH (21:46)
[2016-07-06] MEDS: Melatonin 3 MG Tab PO SCH (21:46)
[2016-07-06] MEDS: Vancomycin 1.75 GM in Sodium Chloride 0.9% 500 ML IV SCH (21:58)
[2016-07-07] MEDS: Albuterol/Ipratropium 3.0-0.5 MG/3 ML Neb Soln INH SCH ×4 (04:17→21:33)
[2016-07-07] MEDS: Morphine 2 MG/ML Syringe IVPUSH PRN ×2 (04:23→11:50)
[2016-07-07] MEDS: Sodium Chloride 0.9% 10 ML Syringe FLUSH PRN ×3 (04:26→20:00)
[2016-07-07] MEDS: Acetaminophen/HYDROcodone 325-5 MG Tab PO PRN (06:13)
[2016-07-07] MEDS: Cholestyramine/Sucrose Powder 4 GM Packet PO SCH (08:21)
[2016-07-07] MEDS: FLUoxetine 20 MG Cap PO SCH (08:21)
[2016-07-07] MEDS: Furosemide 40 MG/4 ML VIAL IVPUSH SCH ×2 (08:21→20:00)
[2016-07-07] MEDS: Digoxin 125 MCG Tab PO SCH (08:21)
[2016-07-07] MEDS: Ferrous Sulfate 325 MG Tab PO SCH ×2 (08:21→20:01)
[2016-07-07] MEDS: Pantoprazole 40 MG Tab.CR PO SCH (08:21)
[2016-07-07] MEDS: Tamsulosin 0.4 MG Cap.ER PO SCH (08:21)
[2016-07-07] MEDS: Multivitamins, Therapeutic with Minerals Tab PO SCH (08:22)
[2016-07-07] MEDS: Acetaminophen/Codeine 300-30 MG Tab PO SCH ×3 (08:22→21:30)
--- NOTE | 2016-07-07 09:52 | PCM.PN ---
- General Info Date of Service: 07/07/16 Subjective Update: Patient has no concerns today. Says he feels much better. He has no pain except for in his ankles from the swelling. He denies fevers, chills, cough, shortness of breath. - Patient Data Vitals - most recent: Last Vital Signs Temp 97.8 F 07/07/16 08:00 Pulse 70 07/07/16 08:21 Resp 18 07/07/16 08:00 BP 97/47 L 07/07/16 08:00 Pulse Ox 91 L 07/07/16 08:00 Weight - most recent: 260 lb 3.2 oz I&O - last 24 hours: Intake & Output 07/06/16 07/07/16 07/07/16 22:59 06:59 14:59 Intake Total 300 530 100 Output Total 525 0 Balance -225 530 100 Lab Results last 24 hrs: Laboratory Results - last 24 hr 07/06/16 07/06/16 07/06/16 Range/Units 10:45 10:45 10:45 WBC 8.5 (4.5-12.0) X10-3/uL RBC 3.04 L (4.30-5.75) x10(6)uL Hgb 9.5 L (11.5-15.5) g/dL Hct 29.1 L (30.0-51.3) % MCV 95.7 (80-96) fL MCH 31.3 (27.7-33.6) pg MCHC 32.7 (32.2-35.4) g/dL RDW 17.9 H (11.5-15.5) % Plt Count 160 (125-369) X10(3)uL MPV 7.8 (7.4-10.4) fL Neut % (Auto) 70.6 (46-82) % Lymph % (Auto) 7.6 L (13-37) % Wallace % (Auto) 7.4 (4-12) % Eos % (Auto) 13 H (1.0-5.0) % Baso % (Auto) 2 (0-2) % Neut # 6.1 (1.6-8.3) # Lymph # 0.6 (0.6-5.0) # Wallace # 0.6 (0.0-1.3) # Eos # 1.1 H (0.0-0.8) # Baso # 0.1 (0.0-0.2) # PT 48.2 H* (8.7-11.1) INR 4.77 H* (0.89-1.13) Sodium (135-145) mmol/L Potassium (3.5-5.3) mmol/L Chloride (100-110) mmol/L Carbon Dioxide (23-29) mmol/L BUN (8-23) mg/dL Creatinine (0.6-1.3) mg/dL Est Cr Clr Drug Dosing mL/min Estimated GFR (MDRD) (>60) BUN/Creatinine Ratio (9-20) Glucose (80-116) mg/dL POC Glucose (80-116) mg/dL Calcium (8.6-10.2) mg/dL B-Natriuretic Peptide 372 H (0-100) pg/mL 07/06/16 07/06/16 07/06/16 Range/Units 10:45 11:13 16:58 WBC (4.5-12.0) X10-3/uL RBC (4.30-5.75) x10(6)uL Hgb (11.5-15.5) g/dL Hct (30.0-51.3) % MCV (80-96) fL MCH (27.7-33.6) pg MCHC (32.2-35.4) g/dL RDW (11.5-15.5) % Plt Count (125-369) X10(3)uL MPV (7.4-10.4) fL Neut % (Auto) (46-82) % Lymph % (Auto) (13-37) % Wallace % (Auto) (4-12) % Eos % (Auto) (1.0-5.0) % Baso % (Auto) (0-2) % Neut # (1.6-8.3) # Lymph # (0.6-5.0) # Wallace # (0.0-1.3) # Eos # (0.0-0.8) # Baso # (0.0-0.2) # PT (8.7-11.1) INR (0.89-1.13) Sodium 135 (135-145) mmol/L Potassium 4.4 (3.5-5.3) mmol/L Chloride 103 (100-110) mmol/L Carbon Dioxide 26 (23-29) mmol/L BUN 51 H (8-23) mg/dL Creatinine 1.3 (0.6-1.3) mg/dL Est Cr Clr Drug Dosing 53.89 mL/min Estimated GFR (MDRD) 54 L (>60) BUN/Creatinine Ratio 39.2 H (9-20) Glucose 100 (80-116) mg/dL POC Glucose 94 81 (80-116) mg/dL Calcium 7.7 L (8.6-10.2) mg/dL B-Natriuretic Peptide (0-100) pg/mL 07/06/16 07/07/16 07/07/16 Range/Units 23:11 06:12 06:45 WBC (4.5-12.0) X10-3/uL RBC (4.30-5.75) x10(6)uL Hgb (11.5-15.5) g/dL Hct (30.0-51.3) % MCV (80-96) fL MCH (27.7-33.6) pg MCHC (32.2-35.4) g/dL RDW (11.5-15.5) % Plt Count (125-369) X10(3)uL MPV (7.4-10.4) fL Neut % (Auto) (46-82) % Lymph % (Auto) (13-37) % Wallace % (Auto) (4-12) % Eos % (Auto) (1.0-5.0) % Baso % (Auto) (0-2) % Neut # (1.6-8.3) # Lymph # (0.6-5.0) # Wallace # (0.0-1.3) # Eos # (0.0-0.8) # Baso # (0.0-0.2) # PT 41.7 H* (8.7-11.1) INR 4.14 H* (0.89-1.13) Sodium (135-145) mmol/L Potassium (3.5-5.3) mmol/L Chloride (100-110) mmol/L Carbon Dioxide (23-29) mmol/L BUN (8-23) mg/dL Creatinine (0.6-1.3) mg/dL Est Cr Clr Drug Dosing mL/min Estimated GFR (MDRD) (>60) BUN/Creatinine Ratio (9-20) Glucose (80-116) mg/dL POC Glucose 96 73 L (80-116) mg/dL Calcium (8.6-10.2) mg/dL B-Natriuretic Peptide (0-100) pg/mL Med Orders - Current: Current Medications Acetaminophen (Tylenol) 650 mg PO Q4H PRN PRN Reason: Pain (Mild 1-3)/fever Acetaminophen/Codeine Phosphate (Tylenol With Codeine No.3 300mg/30mg) 2 tab PO TID [facility] Last Admin: 07/07/16 08:22 Dose: 2 tab Acetaminophen/Hydrocodone Bitart (Cullen 325-5 Mg) 1 tab PO Q4H PRN PRN Reason: Pain Last Admin: 07/07/16 06:13 Dose: 1 tab Albuterol/Ipratropium (Duoneb 3.0-0.5 Mg/3 Ml) 3 ml INH Q6H [facility] Last Admin: 07/07/16 04:17 Dose: 3 ml Bisacodyl (Dulcolax) 10 mg RECTAL DAILY PRN PRN Reason: Constipation Calcium Carbonate/Glycine (Tums) 1,000 mg PO TID PRN PRN Reason: Heartburn Cholestyramine Resin (Cholestyramine Packet) 4 gm PO WITHBREAKFAST [facility] Last Admin: 07/07/16 08:21 Dose: 4 gm Digoxin (Lanoxin) 125 mcg PO DAILY [facility] Last Admin: 07/07/16 08:21 Dose: 125 mcg Ferrous Sulfate (Ferrous Sulfate) 325 mg PO BID [facility] Last Admin: 07/07/16 08:21 Dose: 325 mg Fluoxetine HCl (Prozac) 20 mg PO DAILY [facility] Last Admin: 07/07/16 08:21 Dose: 20 mg Furosemide (Lasix) 40 mg IVPUSH BID [facility] Last Admin: 07/07/16 08:21 Dose: 40 mg Hydroxyzine HCl (Atarax) 25 mg PO BEDTIME [facility] Last Admin: 07/06/16 21:46 Dose: 25 mg Sodium Chloride (Normal Saline) 250 mls @ 100 mls/hr IV ASDIRECTED [facility] Last Admin: 07/05/16 03:47 Dose: 100 mls/hr Sodium Chloride (Normal Saline) 250 mls @ 100 mls/hr IV ASDIRECTED [facility] Last Admin: 07/06/16 01:50 Dose: 100 mls/hr Vancomycin HCl 1.75 gm/ Sodium (Chloride) 500 mls @ 250 mls/hr IV Q12H [facility] Last Admin: 07/06/16 21:58 Dose: 250 mls/hr Melatonin (Melatonin) 3 mg PO BEDTIME [facility] Last Admin: 07/06/16 21:46 Dose: 3 mg Morphine Sulfate (Morphine) 2 mg IVPUSH Q2H PRN PRN Reason: Pain Last Admin: 07/07/16 04:23 Dose: 2 mg Multivitamins/Minerals (Vitamins And Minerals) 1 tab PO DAILY [facility] Last Admin: 07/07/16 08:22 Dose: 1 tab Ondansetron HCl (Zofran) 4 mg IV Q4H PRN PRN Reason: Nausea/Vomiting Pantoprazole Sodium (Protonix) 40 mg PO ACBREAKFAST [facility] Last Admin: 07/07/16 08:21 Dose: 40 mg Sodium Chloride (Saline Flush) 10 ml FLUSH ASDIRECTED PRN PRN Reason: Keep Vein Open Last Admin: 07/07/16 08:25 Dose: 10 ml Spironolactone (Aldactone) 12.5 mg PO DAILY [facility] Last Admin: 07/06/16 08:45 Dose: Not Given Tamsulosin HCl (Flomax) 0.4 mg PO DAILY [facility] Last Admin: 07/07/16 08:21 Dose: 0.4 mg Vancomycin HCl (Vancomycin) 0 gm IV .PHARMACY TO DOSE [facility] Warfarin Sodium (Coumadin Sliding Scale) 0 each PO ASDIRECTED [facility] Discontinued Medications Acetaminophen/Codeine Phosphate (Tylenol With Codeine No.3 300mg/30mg) Confirm Administered Dose 1 tab .ROUTE .STK-MED ONE Stop: 07/05/16 10:00 Last Admin: 07/05/16 10:02 Dose: Not Given Albuterol/Ipratropium (Duoneb 3.0-0.5 Mg/3 Ml) 3 ml NEB ONETIME ONE Stop: 07/04/16 22:24 Last Admin: 07/04/16 22:37 Dose: 3 ml Furosemide (Lasix) 40 mg IVPUSH NOW ONE Stop: 07/04/16 22:24 Last Admin: 07/04/16 22:36 Dose: 40 mg Furosemide (Lasix) 40 mg IVPUSH NOW ONE Stop: 07/04/16 23:53 Last Admin: 07/04/16 23:56 Dose: 40 mg Furosemide (Lasix) 40 mg IVPUSH TID [facility] Last Admin: 07/05/16 06:12 Dose: 40 mg Furosemide (Lasix) 80 mg IVPUSH NOW ONE Stop: 07/05/16 09:01 Last Admin: 07/05/16 10:36 Dose: Not Given Furosemide (Lasix) 40 mg IVPUSH NOW ONE Stop: 07/05/16 10:22 Last Admin: 07/05/16 11:14 Dose: 40 mg Furosemide (Lasix) 40 mg IVPUSH NOW ONE Stop: 07/05/16 14:01 Last Admin: 07/07/16 07:38 Dose: Not Given Azithromycin 500 mg/ Sodium (Chloride) 250 mls @ 250 mls/hr IV Q24H [facility] Last Admin: 07/05/16 03:42 Dose: 250 mls/hr Vancomycin HCl 1,000 mg/ (Dextrose/Water) 250 mls @ 167 mls/hr IV ONETIME ONE Stop: 07/06/16 02:29 Last Admin: 07/06/16 03:35 Dose: Not Given Vancomycin HCl 1 gm/ Dextrose/ (Water) 250 mls @ 167 mls/hr IV ONETIME ONE Stop: 07/06/16 02:29 Last Admin: 07/06/16 01:55 Dose: 167 mls/hr Metolazone (Zaroxolyn) 2.5 mg PO ONETIME ONE Stop: 07/05/16 08:18 Last Admin: 07/05/16 09:51 Dose: 2.5 mg Vancomycin HCl (Vancocin) Confirm Administered Dose 1 gm .ROUTE .STK-MED ONE Stop: 07/06/16 01:12 Last Admin: 07/06/16 03:32 Dose: Not Given Warfarin Sodium (Coumadin) 2.5 mg PO DAILY [facility] Warfarin Sodium (Coumadin) 2.5 mg PO 1600 [facility] Warfarin Sodium (Coumadin) 2.5 mg PO ONETIME ONE Stop: 07/05/16 16:01 Last Admin: 07/05/16 16:12 Dose: 2.5 mg - Exam General: alert, oriented, severe distress Neck: supple Lungs: Clear to auscultation, Normal respiratory effort. No: Crackles, Rales, Rhonchi Cardiovascular: regular rate, irregular rhythm, murmurs Abdomen: no tenderness, no distension Extremities: edema - Problem List & Annotations (1) Anemia SNOMED Code(s): 911187869 Code(s): D64.9 - ANEMIA, UNSPECIFIED Status: Acute Current Visit: Yes Qualifiers: Anemia type: iron deficiency (2) Acute exacerbation of congestive heart failure SNOMED Code(s): 23854014 Code(s): I50.9 - HEART FAILURE, UNSPECIFIED Status: Acute Current Visit: Yes (3) Pulmonary hypertension SNOMED Code(s): 72657448 Code(s): I27.2 - OTHER SECONDARY PULMONARY HYPERTENSION Status: Acute Current Visit: Yes (4) Aortic stenosis, moderate SNOMED Code(s): 04498010 Code(s): I35.0 - NONRHEUMATIC AORTIC (VALVE) STENOSIS Status: Acute Current Visit: Yes (5) Positive blood culture SNOMED Code(s): 827976395 Code(s): R78.81 - BACTEREMIA Status: Acute Current Visit: Yes (6) Palliative care status SNOMED Code(s): 420141639 Code(s): Z51.5 - ENCOUNTER FOR PALLIATIVE CARE Status: Acute Current Visit: Yes - Problem List Review Problem List Initiated/Reviewed/Updated: Yes - My Orders Last 24 Hours: My Active Orders 07/06/16 10:15 Furosemide [Lasix] 40 mg IVPUSH BID 07/06/16 22:00 Vancomycin 1.75 gm Sodium Chloride 0.9% [Normal Saline] 500 ml IV Q12H 07/08/16 06:00 INR,PT,PROTHROMBIN TIME [COAG] DAILY 07/08/16 09:30 VANCOMYCIN TROUGH [CHEM] Timed 07/09/16 06:00 INR,PT,PROTHROMBIN TIME [COAG] DAILY 07/10/16 06:00 INR,PT,PROTHROMBIN TIME [COAG] DAILY 07/11/16 06:00 INR,PT,PROTHROMBIN TIME [COAG] DAILY 07/12/16 06:00 INR,PT,PROTHROMBIN TIME [COAG] DAILY - Plan Plan:: 1. continue to wrap his legs twice a day with Rolando wraps. 2. Continue vancomycin. I called the lab and cultures is supposed to be identified tonight sometime. 3. Continue IV Lasix.
[2016-07-07] MEDS: Vancomycin 1.75 GM in Sodium Chloride 0.9% 500 ML IV SCH ×2 (10:51→21:35)
[2016-07-07] MEDS: hydrOXYzine HCl 25 MG Tab PO SCH (20:00)
[2016-07-07] MEDS: Melatonin 3 MG Tab PO SCH (20:00)
[2016-07-07] MEDS: Sodium Chloride 0.9% 250 ML IV SCH (21:36)
[2016-07-08] MEDS: Morphine 2 MG/ML Syringe IVPUSH PRN ×3 (01:22→22:32)
[2016-07-08] MEDS: Albuterol/Ipratropium 3.0-0.5 MG/3 ML Neb Soln INH SCH ×4 (03:57→22:33)
[2016-07-08] MEDS: Cholestyramine/Sucrose Powder 4 GM Packet PO SCH (08:28)
[2016-07-08] MEDS: Ferrous Sulfate 325 MG Tab PO SCH ×2 (08:28→20:12)
[2016-07-08] MEDS: Tamsulosin 0.4 MG Cap.ER PO SCH (08:28)
[2016-07-08] MEDS: Digoxin 125 MCG Tab PO SCH (08:28)
[2016-07-08] MEDS: Pantoprazole 40 MG Tab.CR PO SCH (08:28)
[2016-07-08] MEDS: Furosemide 40 MG/4 ML VIAL IVPUSH SCH (08:31)
[2016-07-08] MEDS: Multivitamins, Therapeutic with Minerals Tab PO SCH (08:31)
[2016-07-08] MEDS: FLUoxetine 20 MG Cap PO SCH (08:31)
[2016-07-08] MEDS: Acetaminophen/Codeine 300-30 MG Tab PO SCH ×3 (08:35→20:10)
[2016-07-08] MEDS: Sodium Chloride 0.9% 10 ML Syringe FLUSH PRN ×2 (08:37→09:54)
[2016-07-08] MEDS: Vancomycin 1.75 GM in Sodium Chloride 0.9% 500 ML IV SCH (10:50)
[2016-07-08] MEDS: Acetaminophen/HYDROcodone 325-5 MG Tab PO PRN (11:29)
[2016-07-08] MEDS ORDERED: Warfarin Sliding Scale PO SCH (16:45)
[2016-07-08] MEDS: hydrOXYzine HCl 25 MG Tab PO SCH (20:11)
[2016-07-08] MEDS: Melatonin 3 MG Tab PO SCH (20:12)
--- NOTE | 2016-07-08 20:45 | PCM.PN ---
- General Info Date of Service: 07/08/16 Subjective Update: "everyone just keeps asking me questions, please just please me alone. Functional Status: Reports: tolerating diet, urinating - Review of Systems Systems Review Comment:: on only tells me "everything hurts "otherwise does not wish to speak to me. He is difficult to examine secondary to yelling out in pain but will not tell me exactly where his pain is located and prefers to remain lying on his LEFT side. - Patient Data Vitals - most recent: Last Vital Signs Temp 97 F 07/08/16 16:00 Pulse 94 07/08/16 16:00 Resp 18 07/08/16 16:00 BP 88/51 L 07/08/16 16:00 Pulse Ox 95 07/08/16 16:00 Weight - most recent: 117.526 kg I&O - last 24 hours: Intake & Output 07/08/16 07/08/16 07/08/16 06:59 14:59 22:59 Intake Total 300 1980 Balance 300 1980 Lab Results last 24 hrs: Laboratory Results - last 24 hr 07/07/16 07/08/16 07/08/16 Range/Units 21:29 06:38 09:54 PT (8.7-11.1) INR (0.89-1.13) Creatinine 1.2 (0.6-1.3) mg/dL Est Cr Clr Drug Dosing 58.38 mL/min Estimated GFR (MDRD) 59 L (>60) POC Glucose 96 68 L (80-116) mg/dL Vancomycin Trough (10-15) ug/mL 07/08/16 07/08/16 07/08/16 Range/Units 09:55 09:55 13:14 PT 42.3 H* (8.7-11.1) INR 4.20 H* (0.89-1.13) Creatinine (0.6-1.3) mg/dL Est Cr Clr Drug Dosing mL/min Estimated GFR (MDRD) (>60) POC Glucose 120 H (80-116) mg/dL Vancomycin Trough 39.4 H* (10-15) ug/mL Grant Results last 24 hrs: Microbiology 07/04/16 23:33 Blood - Venous Aerobic Blood Culture - Final Staphylococcus Epidermidis 07/04/16 23:33 Blood - Venous Anaerobic Blood Culture - Final 07/05/16 02:15 Nasal, Right Influenza Type A Antigen Screen - Final NEGATIVE INFLUENZA A VIRUS AG 07/05/16 02:15 Nasal, Right Influenza Type B Antigen Screen - Final NEGATIVE INFLUENZA B VIRUS AG Med Orders - Current: Current Medications Acetaminophen (Tylenol) 650 mg PO Q4H PRN PRN Reason: Pain (Mild 1-3)/fever Acetaminophen/Codeine Phosphate (Tylenol With Codeine No.3 300mg/30mg) 2 tab PO TID [facility] Last Admin: 07/08/16 20:10 Dose: 2 tab Acetaminophen/Hydrocodone Bitart ([place]roix 325-5 Mg) 1 tab PO Q4H PRN PRN Reason: Pain Last Admin: 07/08/16 11:29 Dose: 1 tab Albuterol/Ipratropium (Duoneb 3.0-0.5 Mg/3 Ml) 3 ml INH Q6H [facility] Last Admin: 07/08/16 15:03 Dose: 3 ml Bisacodyl (Dulcolax) 10 mg RECTAL DAILY PRN PRN Reason: Constipation Calcium Carbonate/Glycine (Tums) 1,000 mg PO TID PRN PRN Reason: Heartburn Cholestyramine Resin (Cholestyramine Packet) 4 gm PO WITHBREAKFAST [facility] Last Admin: 07/08/16 08:28 Dose: 4 gm Digoxin (Lanoxin) 125 mcg PO DAILY [facility] Last Admin: 07/08/16 08:28 Dose: 125 mcg Ferrous Sulfate (Ferrous Sulfate) 325 mg PO BID [facility] Last Admin: 07/08/16 20:12 Dose: 325 mg Fluoxetine HCl (Prozac) 20 mg PO DAILY [facility] Last Admin: 07/08/16 08:31 Dose: 20 mg Furosemide (Lasix) 60 mg PO DAILY [facility] Hydroxyzine HCl (Atarax) 25 mg PO BEDTIME [facility] Last Admin: 07/08/16 20:11 Dose: 25 mg Melatonin (Melatonin) 3 mg PO BEDTIME [facility] Last Admin: 07/08/16 20:12 Dose: 3 mg Morphine Sulfate (Morphine) 2 mg IVPUSH Q2H PRN PRN Reason: Pain Last Admin: 07/08/16 09:54 Dose: 2 mg Multivitamins/Minerals (Vitamins And Minerals) 1 tab PO DAILY [facility] Last Admin: 07/08/16 08:31 Dose: 1 tab Pantoprazole Sodium (Protonix) 40 mg PO ACBREAKFAST [facility] Last Admin: 07/08/16 08:28 Dose: 40 mg Spironolactone (Aldactone) 12.5 mg PO DAILY [facility] Last Admin: 07/06/16 08:45 Dose: Not Given Tamsulosin HCl (Flomax) 0.4 mg PO DAILY [facility] Last Admin: 07/08/16 08:28 Dose: 0.4 mg Trimethoprim/Sulfamethoxazole (Septra Ds) 1 tab PO BID [facility] Stop: 07/16/16 09:01 Warfarin Sodium (Coumadin Sliding Scale) 0 each PO ASDIRECTED [facility] Discontinued Medications Acetaminophen/Codeine Phosphate (Tylenol With Codeine No.3 300mg/30mg) Confirm Administered Dose 1 tab .ROUTE .STK-MED ONE Stop: 07/05/16 10:00 Last Admin: 07/05/16 10:02 Dose: Not Given Albuterol/Ipratropium (Duoneb 3.0-0.5 Mg/3 Ml) 3 ml NEB ONETIME ONE Stop: 07/04/16 22:24 Last Admin: 07/04/16 22:37 Dose: 3 ml Furosemide (Lasix) 40 mg IVPUSH NOW ONE Stop: 07/04/16 22:24 Last Admin: 07/04/16 22:36 Dose: 40 mg Furosemide (Lasix) 40 mg IVPUSH NOW ONE Stop: 07/04/16 23:53 Last Admin: 07/04/16 23:56 Dose: 40 mg Furosemide (Lasix) 40 mg IVPUSH TID [facility] Last Admin: 07/05/16 06:12 Dose: 40 mg Furosemide (Lasix) 80 mg IVPUSH NOW ONE Stop: 07/05/16 09:01 Last Admin: 07/05/16 10:36 Dose: Not Given Furosemide (Lasix) 40 mg IVPUSH NOW ONE Stop: 07/05/16 10:22 Last Admin: 07/05/16 11:14 Dose: 40 mg Furosemide (Lasix) 40 mg IVPUSH NOW ONE Stop: 07/05/16 14:01 Last Admin: 07/07/16 07:38 Dose: Not Given Furosemide (Lasix) 40 mg IVPUSH BID [facility] Last Admin: 07/08/16 08:31 Dose: 40 mg Azithromycin 500 mg/ Sodium (Chloride) 250 mls @ 250 mls/hr IV Q24H [facility] Last Admin: 07/05/16 03:42 Dose: 250 mls/hr Sodium Chloride (Normal Saline) 250 mls @ 100 mls/hr IV ASDIRECTED [facility] Last Admin: 07/07/16 21:36 Dose: 100 mls/hr Sodium Chloride (Normal Saline) 250 mls @ 100 mls/hr IV ASDIRECTED [facility] Last Admin: 07/06/16 01:50 Dose: 100 mls/hr Vancomycin HCl 1,000 mg/ (Dextrose/Water) 250 mls @ 167 mls/hr IV ONETIME ONE Stop: 07/06/16 02:29 Last Admin: 07/06/16 03:35 Dose: Not Given Vancomycin HCl 1 gm/ Dextrose/ (Water) 250 mls @ 167 mls/hr IV ONETIME ONE Stop: 07/06/16 02:29 Last Admin: 07/06/16 01:55 Dose: 167 mls/hr Vancomycin HCl 1.75 gm/ Sodium (Chloride) 500 mls @ 250 mls/hr IV Q12H [facility] Last Admin: 07/08/16 10:50 Dose: Not Given Metolazone (Zaroxolyn) 2.5 mg PO ONETIME ONE Stop: 07/05/16 08:18 Last Admin: 07/05/16 09:51 Dose: 2.5 mg Ondansetron HCl (Zofran) 4 mg IV Q4H PRN PRN Reason: Nausea/Vomiting Sodium Chloride (Saline Flush) 10 ml FLUSH ASDIRECTED PRN PRN Reason: Keep Vein Open Last Admin: 07/08/16 09:54 Dose: 10 ml Vancomycin HCl (Vancocin) Confirm Administered Dose 1 gm .ROUTE .STK-MED ONE Stop: 07/06/16 01:12 Last Admin: 07/06/16 03:32 Dose: Not Given Vancomycin HCl (Vancomycin) 0 gm IV .PHARMACY TO DOSE [facility] Warfarin Sodium (Coumadin) 2.5 mg PO DAILY [facility] Warfarin Sodium (Coumadin) 2.5 mg PO 1600 [facility] Warfarin Sodium (Coumadin Sliding Scale) 0 each PO ASDIRECTED [facility] Warfarin Sodium (Coumadin) 2.5 mg PO ONETIME ONE Stop: 07/05/16 16:01 Last Admin: 07/05/16 16:12 Dose: 2.5 mg - Exam Quality Assessment: No: supplemental oxygen, skin breakdown General: moderate distress. No: alert, cooperative HEENT: Mucous membr. moist/pink Lungs: Clear to auscultation, Normal respiratory effort Cardiovascular: regular rate, irregular rhythm Abdomen: bowel sounds present, tenderness (rlq mildly. no rigidity), distension (Male) Exam: Scrotal swelling. No: Normal inspection, Circumcised, Scrotum tenderness (R), Testicular tenderness (L), Testicular tenderness (R), Urethral discharge Back Exam: paraspinal tenderness (throughout however concentrated to the RIGHT upper shoulder/rhomboids and LEFT lateral hip and bilateral lower lumbar paraspinals even to minimal pressure. There is no evidence of bruising skin breakdown ulcerations or deformity) Extremities: normal pulses, edema (2+ bilateral pitting from the knees.) Skin: other (superficial skin tear noted to the LEFT hand on the dorsal aspect.) Neurological: normal speech, strength equal bilateral, sensation intact Psy/Mental Status: anxious, agitated - Problem List & Annotations (1) Acute exacerbation of congestive heart failure SNOMED Code(s): 25153098 Code(s): I50.9 - HEART FAILURE, UNSPECIFIED Status: Acute Priority: High Qualifiers: Congestive heart failure type: combined Qualified Code(s): I50.43 - Acute on chronic combined systolic (congestive) and diastolic (congestive) heart failure (2) Chronic kidney disease stage 3 SNOMED Code(s): 531106560 Code(s): N18.3 - CHRONIC KIDNEY DISEASE, STAGE 3 (MODERATE) Status: Chronic Priority: Medium (3) Complaining of debility and malaise SNOMED Code(s): 182639523 Code(s): R53.81 - OTHER MALAISE Status: Acute Priority: High (4) Peripheral edema SNOMED Code(s): 231413970 Code(s): R60.9 - EDEMA, UNSPECIFIED Status: Chronic Priority: High (5) Weight gain Status: Acute Priority: High (6) Macrocytic anemia SNOMED Code(s): 39304318 Code(s): D53.9 - NUTRITIONAL ANEMIA, UNSPECIFIED Status: Chronic (7) Pulmonary hypertension SNOMED Code(s): 76754706 Code(s): I27.2 - OTHER SECONDARY PULMONARY HYPERTENSION Status: Acute (8) Aortic stenosis, moderate SNOMED Code(s): 31543531 Code(s): I35.0 - NONRHEUMATIC AORTIC (VALVE) STENOSIS Status: Chronic (9) Palliative care status SNOMED Code(s): 184994198 Code(s): Z51.5 - ENCOUNTER FOR PALLIATIVE CARE Status: Acute Priority: High (10) Afib, Atrial fibrillation SNOMED Code(s): 10257228 Code(s): I48.91 - UNSPECIFIED ATRIAL FIBRILLATION Status: Chronic Priority: Low Annotation/Comment:: Stable, no issues. (11) Anticoagulant therapy SNOMED Code(s): 87867558 Code(s): Z79.01 - SNF (CURRENT) USE OF ANTICOAGULANTS Status: Acute Priority: High (12) Positive blood culture SNOMED Code(s): 630493949 Code(s): R78.81 - BACTEREMIA Status: Acute - Problem List Review Problem List Initiated/Reviewed/Updated: Yes - My Orders Last 24 Hours: My Active Orders 07/08/16 16:32 Convert IV to Saline Lock [OM.PC] Routine 07/08/16 16:45 Warfarin Sliding Scale [Coumadin Sliding Scale] See Dose Instructions PO ASDIRECTED 07/08/16 Dinner Fluid Restriction [DIET] 07/09/16 05:11 CBC WITH AUTO DIFF [HEME] AM COMPREHENSIVE METABOLIC PN,CMP [CHEM] AM CRP [C-REACTIVE PROTEIN] [CHEM] AM 07/09/16 09:00 Furosemide [Lasix] 60 mg PO DAILY Sulfamethoxazole/Trimethoprim [Septra DS] 1 tab PO BID - Plan Plan:: culture contaminant likely. will start bactrim regardless. vanco trough high so will start tomorrow. inr up. holding warfarin. fluid restrict as he is drinking quite a bit and need to get a deficit. switch iv lasix back to oral.
[2016-07-09] MEDS: Acetaminophen/HYDROcodone 325-5 MG Tab PO PRN (02:39)
[2016-07-09] MEDS: Morphine 2 MG/ML Syringe IVPUSH PRN (03:24)
[2016-07-09] MEDS: Albuterol/Ipratropium 3.0-0.5 MG/3 ML Neb Soln INH SCH ×4 (04:56→22:40)
[2016-07-09] MEDS: Pantoprazole 40 MG Tab.CR PO SCH (07:06)
[2016-07-09] MEDS: Cholestyramine/Sucrose Powder 4 GM Packet PO SCH (08:23)
[2016-07-09] MEDS: Spironolactone 25 MG Tab PO SCH (08:23)
[2016-07-09] MEDS: Tamsulosin 0.4 MG Cap.ER PO SCH (08:24)
[2016-07-09] MEDS: Ferrous Sulfate 325 MG Tab PO SCH (08:24)
[2016-07-09] MEDS: Digoxin 125 MCG Tab PO SCH (08:25)
[2016-07-09] MEDS: FLUoxetine 20 MG Cap PO SCH (08:26)
[2016-07-09] MEDS ORDERED: Morphine 4 MG/ML Syringe IVPUSH ONE (08:34)
[2016-07-09] MEDS: Furosemide 20 MG Tab PO SCH (08:47)
[2016-07-09] MEDS: Sulfamethoxazole/Trimethoprim 800-160 MG Tab PO SCH (08:48)
[2016-07-09] MEDS: Acetaminophen/Codeine 300-30 MG Tab PO SCH (08:49)
[2016-07-09] MEDS ORDERED: HYDROmorphone 2 MG/ML SDV IVPUSH STA (09:40)
[2016-07-09] MEDS ORDERED: LORazepam 2 MG/ML MDV IVPUSH STA (09:42)
[2016-07-09] MEDS: Sodium Chloride 0.9% 10 ML Syringe FLUSH PRN ×3 (10:16→20:51)
[2016-07-09] MEDS: Multivitamins, Therapeutic with Minerals Tab PO SCH ×2 (11:07→12:45)
[2016-07-09] MEDS ORDERED: Lidocaine 2% Jelly 5 ML Urojet MUCMEM ONE (12:41)
[2016-07-09] MEDS ORDERED: Furosemide 20 MG/2 ML VIAL IVPUSH ONE (15:36)
[2016-07-09] MEDS ORDERED: LORazepam 2 MG/ML MDV IVPUSH PRN (15:45)
[2016-07-09] MEDS ORDERED: fentaNYL 12 MCG/HR Transdermal Patch TRDERM SCH (15:45)
--- NOTE | 2016-07-09 17:28 | PCM.PN ---
- General Info Date of Service: 07/09/16 Admission Dx/Problem (Free Text): Date of Service: 07/09/16 Subjective Update: was able to get pain under control yesterday. This allowed me to get an adequate physical exam. Still in moderate distress strengthening movement. Eating little. Still drinking fluids. Urination decreased. Nursing having a difficult time with positioning and cares due to patient's resistance. on only tells me "everything hurts "otherwise does not wish to speak to me. He is difficult to examine secondary to yelling out in pain but will not tell me exactly where his pain is located and prefers to remain lying on his LEFT side. - Review of Systems Systems Review Comment:: unable to complete accept as noted above. - Patient Data Vitals - reviewed. I&O - last 24 hours: increasing fluid balance with minimal output. no moss in place. Lab Results: reviewed. inr still up. Grant Results last 24 hrs: Microbiology 07/04/16 23:33 Blood - Venous Aerobic Blood Culture - Final Staphylococcus Epidermidis 07/04/16 23:33 Blood - Venous Anaerobic Blood Culture - Final 07/05/16 02:15 Nasal, Right Influenza Type A Antigen Screen - Final NEGATIVE INFLUENZA A VIRUS AG 07/05/16 02:15 Nasal, Right Influenza Type B Antigen Screen - Final NEGATIVE INFLUENZA B VIRUS AG Med Orders - Current: reviewed. - Exam Quality Assessment: No: supplemental oxygen, skin breakdown General: moderate distress. No: alert, cooperative HEENT: Mucous membr. moist/pink Lungs: Clear to auscultation, Normal respiratory effort Cardiovascular: regular rate, irregular rhythm Abdomen: bowel sounds present, tenderness (rlq mildly. no rigidity), distension (Male) Exam: Scrotal swelling improved. No: Normal inspection, Circumcised, Scrotum tenderness (R), Testicular tenderness (L), Testicular tenderness (R), Urethral discharge Back Exam: paraspinal tenderness (throughout however concentrated to the RIGHT upper shoulder/rhomboids and LEFT lateral hip and bilateral lower lumbar paraspinals even to minimal pressure. There is no evidence of bruising skin breakdown ulcerations or deformity) Extremities: normal pulses, edema (2+ bilateral pitting from the knees.) Skin: other (superficial skin tear noted to the LEFT hand on the dorsal aspect covered with skin. new iv active.) Neurological: speech loud and on states I hurt everywhere, strength equal bilateral, sensation intact Psy/Mental Status: anxious, agitated - Patient Data Vitals - most recent: Last Vital Signs Temp 97.6 F 07/09/16 16:03 Pulse 75 07/09/16 16:03 Resp 18 07/09/16 16:03 BP 91/56 L 07/09/16 16:03 Pulse Ox 96 07/09/16 16:03 Weight - most recent: 117.282 kg I&O - last 24 hours: Intake & Output 07/09/16 07/09/16 07/09/16 06:59 14:59 22:59 Intake Total 450 280 Output Total 650 Balance 450 280 -650 Lab Results last 24 hrs: Laboratory Results - last 24 hr 07/08/16 07/09/16 07/09/16 Range/Units 22:25 07:03 08:55 WBC (4.5-12.0) X10-3/uL RBC (4.30-5.75) x10(6)uL Hgb (11.5-15.5) g/dL Hct (30.0-51.3) % MCV (80-96) fL MCH (27.7-33.6) pg MCHC (32.2-35.4) g/dL RDW (11.5-15.5) % Plt Count (125-369) X10(3)uL MPV (7.4-10.4) fL Add Manual Diff Neutrophils % (Manual) (46-82) % Lymphocytes % (Manual) (13-37) % Monocytes % (Manual) (4-12) % Eosinophils % (Manual) (0-5) % Anisocytosis PT 38.2 H* (8.7-11.1) INR 3.80 H (0.89-1.13) Sodium (135-145) mmol/L Potassium (3.5-5.3) mmol/L Chloride (100-110) mmol/L Carbon Dioxide (23-29) mmol/L BUN (8-23) mg/dL Creatinine (0.6-1.3) mg/dL Est Cr Clr Drug Dosing mL/min Estimated GFR (MDRD) (>60) BUN/Creatinine Ratio (9-20) Glucose (80-116) mg/dL POC Glucose 92 73 L (80-116) mg/dL Calcium (8.6-10.2) mg/dL Total Bilirubin (0.1-1.3) mg/dL AST (5-27) IU/L ALT (14-26) IU/L Alkaline Phosphatase (56-112) IU/L C-Reactive Protein (0.0-1.0) mg/dL Total Protein (6.0-8.0) g/dL Albumin (3.2-4.6) g/dL Globulin g/dL Albumin/Globulin Ratio 07/09/16 07/09/16 07/09/16 Range/Units 08:55 08:55 12:41 WBC 9.0 (4.5-12.0) X10-3/uL RBC 3.16 L (4.30-5.75) x10(6)uL Hgb 9.8 L (11.5-15.5) g/dL Hct 30.6 (30.0-51.3) % MCV 96.9 H (80-96) fL MCH 30.9 (27.7-33.6) pg MCHC 31.9 L (32.2-35.4) g/dL RDW 17.5 H (11.5-15.5) % Plt Count 205 (125-369) X10(3)uL MPV 7.7 (7.4-10.4) fL Add Manual Diff Yes Neutrophils % (Manual) 78 (46-82) % Lymphocytes % (Manual) 8 L (13-37) % Monocytes % (Manual) 5 (4-12) % Eosinophils % (Manual) 9 H (0-5) % Anisocytosis Few PT (8.7-11.1) INR (0.89-1.13) Sodium 135 (135-145) mmol/L Potassium 4.1 (3.5-5.3) mmol/L Chloride 102 (100-110) mmol/L Carbon Dioxide 25 (23-29) mmol/L BUN 54 H (8-23) mg/dL Creatinine 1.1 (0.6-1.3) mg/dL Est Cr Clr Drug Dosing 63.69 mL/min Estimated GFR (MDRD) > 60 (>60) BUN/Creatinine Ratio 49.1 H (9-20) Glucose 93 (80-116) mg/dL POC Glucose 168 H D (80-116) mg/dL Calcium 7.9 L (8.6-10.2) mg/dL Total Bilirubin 1.6 H (0.1-1.3) mg/dL AST 32 H (5-27) IU/L ALT 27 H (14-26) IU/L Alkaline Phosphatase 259 H (56-112) IU/L C-Reactive Protein 5.5 H* (0.0-1.0) mg/dL Total Protein 5.9 L (6.0-8.0) g/dL Albumin 2.4 L (3.2-4.6) g/dL Globulin 3.5 g/dL Albumin/Globulin Ratio 0.7 07/09/ Range/Units 16:35 WBC (4.5-12.0) X10-3/uL RBC (4.30-5.75) x10(6)uL Hgb (11.5-15.5) g/dL Hct (30.0-51.3) % MCV (80-96) fL MCH (27.7-33.6) pg MCHC (32.2-35.4) g/dL RDW (11.5-15.5) % Plt Count (125-369) X10(3)uL MPV (7.4-10.4) fL Add Manual Diff Neutrophils % (Manual) (46-82) % Lymphocytes % (Manual) (13-37) % Monocytes % (Manual) (4-12) % Eosinophils % (Manual) (0-5) % Anisocytosis PT (8.7-11.1) INR (0.89-1.13) Sodium (135-145) mmol/L Potassium (3.5-5.3) mmol/L Chloride (100-110) mmol/L Carbon Dioxide (23-29) mmol/L BUN (8-23) mg/dL Creatinine (0.6-1.3) mg/dL Est Cr Clr Drug Dosing mL/min Estimated GFR (MDRD) (>60) BUN/Creatinine Ratio (9-20) Glucose (80-116) mg/dL POC Glucose 113 (80-116) mg/dL Calcium (8.6-10.2) mg/dL Total Bilirubin (0.1-1.3) mg/dL AST (5-27) IU/L ALT (14-26) IU/L Alkaline Phosphatase (56-112) IU/L C-Reactive Protein (0.0-1.0) mg/dL Total Protein (6.0-8.0) g/dL Albumin (3.2-4.6) g/dL Globulin g/dL Albumin/Globulin Ratio Med Orders - Current: Current Medications Acetaminophen (Tylenol) 650 mg PO Q4H PRN PRN Reason: Pain (Mild 1-3)/fever Albuterol/Ipratropium (Duoneb 3.0-0.5 Mg/3 Ml) 3 ml INH Q6H [facility] Last Admin: 07/09/16 14:59 Dose: 3 ml Bisacodyl (Dulcolax) 10 mg RECTAL DAILY PRN PRN Reason: Constipation Calcium Carbonate/Glycine (Tums) 1,000 mg PO TID PRN PRN Reason: Heartburn Cholestyramine Resin (Cholestyramine Packet) 4 gm PO WITHBREAKFAST [facility] Last Admin: 07/09/16 08:23 Dose: 4 gm Digoxin (Lanoxin) 125 mcg PO DAILY [facility] Last Admin: 07/09/16 08:25 Dose: 125 mcg Fentanyl (Sublimaze) 50 mcg IVPUSH Q4H PRN PRN Reason: Pain Fentanyl (Duragesic) 12 mcg TRDERM Q72H [facility] Last Admin: 07/09/16 16:30 Dose: 12 mcg Ferrous Sulfate (Ferrous Sulfate) 325 mg PO BID [facility] Last Admin: 07/09/16 08:24 Dose: 325 mg Fluoxetine HCl (Prozac) 10 mg PO DAILY [facility] Furosemide (Lasix) 60 mg PO DAILY [facility] Last Admin: 07/09/16 08:47 Dose: 60 mg Hydroxyzine HCl (Atarax) 25 mg PO BEDTIME [facility] Last Admin: 07/08/16 20:11 Dose: 25 mg Lorazepam (Ativan) 0.5 mg IVPUSH Q6H PRN PRN Reason: anxiety/agitation Melatonin (Melatonin) 3 mg PO BEDTIME [facility] Last Admin: 07/08/16 20:12 Dose: 3 mg Multivitamins/Minerals (Vitamins And Minerals) 1 tab PO DAILY [facility] Last Admin: 07/09/16 12:45 Dose: Not Given Pantoprazole Sodium (Protonix) 40 mg PO ACBREAKFAST [facility] Last Admin: 07/09/16 07:06 Dose: 40 mg Sodium Chloride (Saline Flush) 10 ml FLUSH ASDIRECTED PRN PRN Reason: Keep Vein Open Spironolactone (Aldactone) 12.5 mg PO DAILY [facility] Last Admin: 07/09/16 08:23 Dose: 12.5 mg Tamsulosin HCl (Flomax) 0.4 mg PO DAILY [facility] Last Admin: 07/09/16 08:24 Dose: 0.4 mg Trimethoprim/Sulfamethoxazole (Septra Ds) 1 tab PO BID [facility] Stop: 07/16/16 09:01 Last Admin: 07/09/16 08:48 Dose: 1 tab Warfarin Sodium (Coumadin Sliding Scale) 0 each PO ASDIRECTED [facility] - Problem List & Annotations (1) Acute exacerbation of congestive heart failure SNOMED Code(s): 31925220 Code(s): I50.9 - HEART FAILURE, UNSPECIFIED Status: Acute Priority: High Qualifiers: Congestive heart failure type: combined Qualified Code(s): I50.43 - Acute on chronic combined systolic (congestive) and diastolic (congestive) heart failure (2) Chronic kidney disease stage 3 SNOMED Code(s): 771517634 Code(s): N18.3 - CHRONIC KIDNEY DISEASE, STAGE 3 (MODERATE) Status: Chronic Priority: Medium (3) Complaining of debility and malaise SNOMED Code(s): 254092257 Code(s): R53.81 - OTHER MALAISE Status: Acute Priority: High (4) Peripheral edema SNOMED Code(s): 985649676 Code(s): R60.9 - EDEMA, UNSPECIFIED Status: Chronic Priority: High (5) Weight gain Status: Acute Priority: High (6) Macrocytic anemia SNOMED Code(s): 56445216 Code(s): D53.9 - NUTRITIONAL ANEMIA, UNSPECIFIED Status: Chronic (7) Pulmonary hypertension SNOMED Code(s): 24195423 Code(s): I27.2 - OTHER SECONDARY PULMONARY HYPERTENSION Status: Acute (8) Aortic stenosis, moderate SNOMED Code(s): 81316253 Code(s): I35.0 - NONRHEUMATIC AORTIC (VALVE) STENOSIS Status: Chronic (9) Palliative care status SNOMED Code(s): 166080650 Code(s): Z51.5 - ENCOUNTER FOR PALLIATIVE CARE Status: Acute Priority: High (10) Afib, Atrial fibrillation SNOMED Code(s): 62779733 Code(s): I48.91 - UNSPECIFIED ATRIAL FIBRILLATION Status: Chronic Priority: Low Annotation/Comment:: Stable, no issues. (11) Anticoagulant therapy SNOMED Code(s): 53871550 Code(s): Z79.01 - PENITENTIARY (CURRENT) USE OF ANTICOAGULANTS Status: Acute Priority: High (12) Positive blood culture SNOMED Code(s): 176264462 Code(s): R78.81 - BACTEREMIA Status: Acute - Problem List Review Problem List Initiated/Reviewed/Updated: Yes - My Orders Last 24 Hours: My Active Orders 07/09/16 15:37 fentaNYL [Sublimaze] 50 mcg IVPUSH Q4H PRN 07/09/16 15:45 LORazepam [Ativan] 0.5 mg IVPUSH Q6H PRN fentaNYL [Duragesic] 12 mcg TRDERM Q72H 07/09/16 15:48 Intake and Output Strict [RC] Q4HR 07/09/16 15:49 Sodium Chloride 0.9% [Saline Flush] 10 ml FLUSH ASDIRECTED PRN 07/10/16 09:00 FLUoxetine [PROzac] 10 mg PO DAILY - Plan Plan:: culture contaminant likelyas only able to get one set due to patient resistance. started bactrim regardless as vanco troughs high. will not be restarting this. CRP is up. inr still up. holding warfarin. fluid restriction as he is becoming more edematous and no urine output. Need Moss in place. Beginning to refuse oral medicationsbut will try to add on some fluoxetine for anxiety and agitation as well as improve pain control with IV opioid/anxiety lytic.
[2016-07-09] MEDS: fentaNYL 100 MCG/2 ML SDV IVPUSH PRN (20:49)
[2016-07-10] MEDS: hydrOXYzine HCl 25 MG Tab PO SCH ×2 (01:04→20:33)
[2016-07-10] MEDS: Melatonin 3 MG Tab PO SCH (01:04)
[2016-07-10] MEDS: Ferrous Sulfate 325 MG Tab PO SCH ×2 (01:04→11:05)
[2016-07-10] MEDS: Sulfamethoxazole/Trimethoprim 800-160 MG Tab PO SCH ×3 (01:04→20:33)
[2016-07-10] MEDS: fentaNYL 100 MCG/2 ML SDV IVPUSH PRN ×4 (01:25→19:03)
[2016-07-10] MEDS: Albuterol/Ipratropium 3.0-0.5 MG/3 ML Neb Soln INH SCH ×4 (05:18→22:15)
[2016-07-10] MEDS: Sodium Chloride 0.9% 10 ML Syringe FLUSH PRN ×3 (06:43→08:34)
[2016-07-10] MEDS: Pantoprazole 40 MG Tab.CR PO SCH (07:33)
[2016-07-10] MEDS ORDERED: HYDROmorphone 2 MG/ML SDV IVPUSH ONE (08:14)
[2016-07-10] MEDS ORDERED: Furosemide 20 MG/2 ML VIAL IVPUSH SCH (09:15)
[2016-07-10] MEDS: Cholestyramine/Sucrose Powder 4 GM Packet PO SCH (11:04)
[2016-07-10] MEDS: Tamsulosin 0.4 MG Cap.ER PO SCH (11:05)
[2016-07-10] MEDS: Digoxin 125 MCG Tab PO SCH (11:05)
[2016-07-10] MEDS: Spironolactone 25 MG Tab PO SCH (11:05)
[2016-07-10] MEDS: FLUoxetine 10 MG Cap PO SCH (11:06)
[2016-07-10] MEDS: Multivitamins, Therapeutic with Minerals Tab PO SCH (11:06)
[2016-07-10] MEDS: Furosemide 20 MG Tab PO SCH (11:06)
[2016-07-10] MEDS ORDERED: Lidocaine 2% Viscous Solution 15 ML Cup PO PRN (12:22)
[2016-07-10] MEDS ORDERED: Magnesium Hydroxide 400 MG/5 ML Susp 30 ML Cup PO PRN (12:22)
[2016-07-10] MEDS ORDERED: Atropine 0.4 MG/ML SDV IV PRN (12:22)
[2016-07-10] MEDS ORDERED: Baclofen 10 MG Tab PO PRN (12:22)
[2016-07-10] MEDS ORDERED: Nitroglycerin 0.4 MG Tab.SL SL PRN (12:22)
[2016-07-10] MEDS ORDERED: Acetaminophen 1,000 MG in Premix Bag 1 BAG IV PRN ×2 (12:22→14:37)
[2016-07-10] MEDS ORDERED: Gabapentin 300 MG Cap PO PRN (12:22)
[2016-07-10] MEDS ORDERED: Metoclopramide 10 MG Tab PO PRN (12:22)
[2016-07-10] MEDS ORDERED: Dexamethasone 4 MG Tab PRN (12:39)
[2016-07-10] MEDS ORDERED: chlorproMAZINE 25 MG Tab PRN (12:39)
[2016-07-10] MEDS ORDERED: Scopolamine 1.5 MG Transdermal Patch TRDERM PRN (12:39)
[2016-07-10] MEDS ORDERED: Hydrocortisone Acetate 25 MG Supp RECTAL PRN (12:39)
[2016-07-10] MEDS ORDERED: Carboxymethylcellulose Sodium 1% Ophth Gel 0.4 ML UD Box of 30 EYEBOTH PRN (12:39)
[2016-07-10] MEDS ORDERED: Morphine 10 MG/ML Syringe SUBCUT PRN (12:39)
[2016-07-10] MEDS ORDERED: Atropine 1% Ophth Soln 5 ML Bottle SL PRN (12:39)
[2016-07-10] MEDS ORDERED: Loperamide 2 MG Cap PO PRN (12:39)
[2016-07-10] MEDS: Furosemide 40 MG/4 ML VIAL IVPUSH SCH ×2 (14:38→19:53)
[2016-07-10] MEDS ORDERED: Morphine Oral Concentrate 20 MG/ML 30 ML Bottle PO PRN (14:54)
[2016-07-10] MEDS ORDERED: Haloperidol Lactate Oral Concetrate 2 MG/ML ML 120 ML Bottle PO PRN (14:56)
[2016-07-10] MEDS ORDERED: Haloperidol Lactate 5 MG/ML SDV SUBCUT PRN (14:57)
[2016-07-10] MEDS: Morphine 10 MG/ML Syringe SUBCUT PRN ×2 (20:34→22:15)
[2016-07-11] MEDS: Morphine 10 MG/ML Syringe SUBCUT PRN ×6 (02:00→11:18)
[2016-07-11] MEDS: Albuterol/Ipratropium 3.0-0.5 MG/3 ML Neb Soln INH SCH ×2 (04:09→10:01)
[2016-07-11] MEDS: Furosemide 40 MG/4 ML VIAL IVPUSH SCH (05:55)
[2016-07-11] MEDS ORDERED: Atropine 1% Ophth Soln 5 ML Bottle SL PRN (07:11)
[2016-07-11 08:09] VITALS: BP 104/46
[2016-07-11] MEDS: Tamsulosin 0.4 MG Cap.ER PO SCH (09:27)
[2016-07-11] MEDS: Digoxin 125 MCG Tab PO SCH (09:27)
[2016-07-11] MEDS: Cholestyramine/Sucrose Powder 4 GM Packet PO SCH (09:27)
[2016-07-11] MEDS: FLUoxetine 10 MG Cap PO SCH (09:28)
[2016-07-11] MEDS: Sulfamethoxazole/Trimethoprim 800-160 MG Tab PO SCH (09:28)
--- NOTE | 2016-07-11 11:26 | CR ---
INDICATION: Question dislocation. RIGHT HIP: A limited study was obtained in the frontal projection. Lateral view could not be obtained at this time. The frontal view shows an appearance of normal seating of the femoral head in the acetabulum, with no evidence of dislocation identified. Moderate to moderately severe hypertrophic degenerative changes are noted at the hip joint. MTDD
--- NOTE | 2016-07-11 11:34 | PCM.SN ---
- Free Text/Narrative Note: Subjective: Patient has continued to decline with regards to organ system failure. Daniels catheter had been placed initially releasing a significant amount of urine however he has not produced much if any output overnight. His been started on a Duragesic patch and after discussion with the family, they wished to proceed with hospice care to include comfort measures, pain control and family support. Per his living will and discussion with the sons this is in line with their father's wishes at the end-of-life. Duragesic patch has been applied the patient stills continues to cry out in pain with any movement. I did have an x-ray of the RIGHT hip pelvis to rule out any fracture or dislocation as he did seem to be more tender with palpation along with muscular spasming noted of the hip flexors and quadriceps. Intermittently get anxiety lytic as well as IV fentanyl intermittently as needed which at best has moderately been able to control his pain without affecting his respiratory status. ROS: Unobtainable Objective: Weight 115.212 kg; temp 97.9F; pulse 70-90 BPM; BP 99-125/49-56; O2 sat 91% on 4 L nasal cannula. Urine output: 125 mL's in the last 12 hours via Daniels catheter. Oral intake 0. Mental status: Nonverbal response, continues to yell out in pain with any touch , refusing oral medications. Refusing IV. HEENT: Dry mucous membranes; pupils equal round and reactive sluggishly Lungs: Diminished aeration throughout, no rales or rhonchi CV: Irregularly irregular rhythm regular rate diminished capillary refill 4 seconds at the nailbeds Abdomen: Protuberant, bowel sounds minimal, no rigidity : Scrotal edema persist, no cellulitis evident. Daniels catheter intact. Skin: Ecchymosis to bilateral arms from attempts at IV. Non-jaundice. Bilateral peripheral edema 2-3+ pitting up to the knees, generalized mild anasarca upper extremities. Fentanyl Duragesic patch LEFT upper shoulder blade. Assessment: 1. Multisystem organ failure including decompensated heart failure resulting in renal perfusion injury with anuria, declining respiratory status with increasing needs for oxygen therapy, opioid/anxiety for pain control and comfort. 2. DNI DNR 3. Comfort cares. Plan: After discussion with the family which is in line with the patient's wishes we' ll transition him over to inpatient hospice care. I will go ahead and initiate comfort cares and pain management per their usual customary orders until he can been seen. I did discuss with the family that I do not anticipate him to be able to sustain life for the next 24-48 hours. They expressed understanding, wished to discontinue all unnecessary medications, no artificial feeds or fluid resuscitation. Pain control and comfort are but most importance at this time.
--- NOTE | 2016-08-14 15:10 | PCM.DCSUM1 ---
Discharge Summary - Hospital Course Free Text/Narrative:: Date of Admission: 07/04/2016 Date of Discharge: 07/11/2016 Reason for Admission: Decompensated congestive heart failure resulting in respiratory failure, pulmonary edema presenting from [facility] and [facility]. Hospital course: 76-year-old gentleman who is a [facility] of a [facility] years secondary to several comorbidities including a history of CHF, severe osteoarthritis, chronic renal failure, atrial fibrillation with current supratherapeutic INR on warfarin, insulin-dependent type 2 diabetes mellitus, hypertension, obstructive sleep apnea on CPAP, chronic anemia secondary to renal disease, depression, muscular contractures, BPH, urinary incontinence, morbid obesity, and vascular dementia was transferred to [facility] secondary to increasing shortness of breath, debility and malaise, increasing edema with weeping of the lower extremities. Did Have Coarse Rales Bilateral with Increasing Work of Breathing and Intermittent Oxygen Desaturation. DNR CODE STATUS per [facility] Records and Confirmed by Daughter. Initial laboratory and evaluation showed anemia with H/H: 7.9/28.1% and an MCV of 100.1. WBC however normal at 9.8. Platelets 187,000. Metabolic panel: 133/ 4.8/104/22/49/1.3/159/GFR-53.8/lactic acid-1.5/calcium-7.6/total bilirubin-1.4/ AST-35/ALTs-29/alk phos-286/CRP 2.8/total protein 5.7/albumin 2.3/globulin 3.4. Coag: PT/INR-17.7/1.79. Cardiac panel: Troponin I <0.01 (0.02-0.06); BNP-334 (0-100); digitoxin level- 0.9 (0.8-2.0). Refused EKG. chest x-ray negative for focal consolidation or large pleural effusion but there was evidence of pulmonary edema. Comparing weight from the [facility] and today showed increased fluid status up to 20 pounds. He was diuresed with IV Lasix, metolazone, started on antibiotics prophylactically neck treatments oxygen therapy in the setting of an elevated CRP and severe dyspnea in the setting of acute on chronic renal failure. Blood cultures attempted however the patient only allowed one sample to be taken. Influenza A and B swabs negative. Urinalysis otherwise unremarkable. During the course of his stay he was transfused 2 units packed red blood cells, he continued to diuresis mildly as he was drinking a significant amount of fluids continuing to result in a positive fluid balance. Blood culture returned positive 1 (as not able to get a secondary set as mentioned above) for staph epidermidis which is likely contaminant however still needed to be covered with vancomycin in the setting of chronic renal failure which not only resulted in significant elevated troughs, but also his INR for which his warfarin had to be withheld. He was also covered with Bactrim. As we were unable to get accurate ins and outs due to urinary incontinence and patient's refusal of attempt at repeat Daniels catheter replacement. Roughly day 3 of his stay he was complaining of severe pain all over mainly in the joints and refusing to be repositioned and quite belligerent with the staff. As I was unable to ascertain the exact source of his pain nor able to get an accurate physical assessment due to his pain level and refusal I did order an mild IV sedation and muscle relaxant in order to allow me to properly examine him. Later that evening I had to repeat sedation as it was necessary to obtain Daniels catheter placement to assess fluid status and appropriate management. He tolerated this quite well without decompensation and respiratory status or cardiopulmonary status. Initial urine output was roughly 600-700 mL. At that point it became clear improved pain management would be necessary in order to assess physical, emotional, and neurologic status. Diet somewhat improved with pain control, somewhat more adherent to minimal oral medications but still quite alert and combative/verbally aggressive towards nurses for any attempts of cares due to pain which she would not localize but yell out to any touch. Repeatedly stated "please just leave me alone, don't touch me." As he continued to decline repeat labs, nursing cares and oral medication his family was contacted to discuss possible transition to hospice and comfort cares. Detailed discussion with them at the bedside and also while letting them observe my attempts to examine her father and the pain he was then mostly regarding his chronic musculoskeletal pain from years of osteoarthritis and contractures they agreed that he would not want to continue in this manner and that he had indicated to them in the past and in his written documents he would not want therapies to prolong his life if they would not result in improved quality of life. Therefore he was transitioned to inpatient hospice knowing that he would not survive the next 24-48 hours if he continued to refuse oral intake, medication, IV access, respiratory therapy, cardiac resuscitation/BiPAP or intubation should he go into cardiopulmonary arrest. All questions were answered, the family was comforted and reassured that there are decisions were in their father 's best interest. Total discharge time: 80 minutes with greater than 50% spent [id number] with the family and patient regarding examination, debriefing on hospital course, current patient's status, prognosis, counseling regarding hospice and answering any questions along with on the floor coordination of cares. Allergies Allergy/AdvReac Type Severity Reaction Status Date / Time Penicillins Allergy Cannot Verified 07/05/16 03:48 Remember - Discharge Data Discharge Date: 07/11/16 Discharge Disposition: DC/Tfer to Hospice-Med Fac 51 Condition: Poor - Discharge Diagnosis/Problem(s) (1) Acute exacerbation of congestive heart failure SNOMED Code(s): 05584285 ICD Code: I50.9 - HEART FAILURE, UNSPECIFIED Status: Acute Priority: High Qualifiers: Congestive heart failure type: combined Qualified Code(s): I50.43 - Acute on chronic combined systolic (congestive) and diastolic (congestive) heart failure (2) Chronic kidney disease stage 3 SNOMED Code(s): 618726027 ICD Code: N18.3 - CHRONIC KIDNEY DISEASE, STAGE 3 (MODERATE) Status: Chronic Priority: Medium (3) Complaining of debility and malaise SNOMED Code(s): 196995803 ICD Code: R53.81 - OTHER MALAISE Status: Acute Priority: High (4) Peripheral edema SNOMED Code(s): 436881070 ICD Code: R60.9 - EDEMA, UNSPECIFIED Status: Chronic Priority: High (5) Weight gain Status: Acute Priority: High (6) Macrocytic anemia SNOMED Code(s): 38208936 ICD Code: D53.9 - NUTRITIONAL ANEMIA, UNSPECIFIED Status: Chronic (7) Pulmonary hypertension SNOMED Code(s): 38951192 ICD Code: I27.2 - OTHER SECONDARY PULMONARY HYPERTENSION Status: Acute (8) Aortic stenosis, moderate SNOMED Code(s): 36795721 ICD Code: I35.0 - NONRHEUMATIC AORTIC (VALVE) STENOSIS Status: Chronic (9) Palliative care status SNOMED Code(s): 784104219 ICD Code: Z51.5 - ENCOUNTER FOR PALLIATIVE CARE Status: Acute Priority: High (10) Afib, Atrial fibrillation SNOMED Code(s): 55156817 ICD Code: I48.91 - UNSPECIFIED ATRIAL FIBRILLATION Status: Chronic Priority: Low Problem Details: Stable, no issues. (11) Anticoagulant therapy SNOMED Code(s): 14080192 ICD Code: Z79.01 - DETENTION (CURRENT) USE OF ANTICOAGULANTS Status: Acute Priority: High (12) Positive blood culture SNOMED Code(s): 425777046 ICD Code: R78.81 - BACTEREMIA Status: Acute - Patient Summary/Data Consults: Consultations 07/10/16 12:53 Consult to Hospice [CONS] Routine Comment: Physician Instructions: - Discharge Plan Home Medications: Home Meds Warfarin [Coumadin] 2.5 mg PO MOFR 10/02/13 [History] Calcium Carbonate/Vitamin D3 [Calcium 600-Vit D3 800 Tablet] 1 tab PO BID [History] Cholecalciferol (Vitamin D3) [Vitamin D3] 1,000 units PO DAILY 09/22/14 [History ] Melatonin 3 mg PO BEDTIME 09/22/14 [History] Acetaminophen with Codeine [Tylenol with Codeine #3 Tablet] 2 tab PO TID [History] FLUoxetine HCl [Prozac] 10 mg PO DAILY 11/24/15 [History] Loperamide [Imodium] 2 mg PO ASDIRECTED 11/24/15 [History] Tamsulosin [Flomax] 0.4 mg PO DAILY 11/24/15 [History] Acetaminophen [Mapap] 650 mg PO Q4H PRN 12/31/15 [History] Alum Hydrox/Mag Hydrox/Simeth [Maalox Advanced] 15 ml PO Q4H PRN 12/31/15 [ History] Bisacodyl 10 mg RECTAL DAILY PRN 12/31/15 [History] Calcium Carbonate [Tums] 1,000 mg PO TID PRN 12/31/15 [History] Cholestyramine/Sucrose [Cholestyramine] 4 gm PO WITHBREAKFAST 12/31/15 [History] Dextromethorphan/guaiFENesin [Robitussin DM] 10 ml PO Q4H PRN 12/31/15 [History] Furosemide [Lasix] 60 mg PO DAILY 12/31/15 [History] Magnesium Hydroxide [Milk of Magnesia] 30 ml PO DAILY PRN 12/31/15 [History] Multivitamin with Minerals [Nzz-R-Mioo-Minerals] 1 tab PO DAILY 12/31/15 [ History] Ondansetron [Zofran ODT] 4 mg SL Q4H PRN 12/31/15 [History] Pantoprazole [Protonix] 40 mg PO ACBREAKFAST 12/31/15 [History] Phytonadione [Vitamin K] 100 mcg PO DAILY 12/31/15 [History] Trolamine Salicylate/Aloe Vera [Aspercreme 10% Cream] 1 applic TOP DAILY@1900 [History] Ferrous Sulfate 325 mg PO BID 01/16/16 [History] Bacitracin/Neomycin/Polymyxin [Triple Antibiotic Oint] 1 applic TOP ASDIRECTED PRN 07/05/16 [History] Bumetanide 2.5 mg PO MOWEFR 07/05/16 [History] Digoxin 125 mcg PO DAILY 07/05/16 [History] Spironolactone [Aldactone] 12.5 mg PO DAILY 07/05/16 [History] Triamcinolone Acetonide [Kenalog-40] 40 mg IM Q90D 07/05/16 [History] Warfarin [Coumadin] 1.25 mg PO SUTUWETHSA 07/05/16 [History] hydrOXYzine Pamoate [Vistaril] 25 mg PO BEDTIME 07/05/16 [History] - General Info Subjective Update: he is laying on his L side. lethargic but arousable. - Patient Data Vitals - Most Recent: Last Vital Signs Temp 98.1 F 07/11/16 08:09 Pulse 68 07/11/16 10:11 Resp 18 07/11/16 08:09 BP 104/46 L 07/11/16 08:09 Pulse Ox 93 L 07/11/16 10:11 Weight - Most Recent: 117.282 kg Med Orders - Current: Current Medications Discontinued Medications Acetaminophen (Tylenol) 650 mg PO Q4H PRN PRN Reason: Pain (Mild 1-3)/fever Acetaminophen/Codeine Phosphate (Tylenol With Codeine No.3 300mg/30mg) 2 tab PO TID WANDA Last Admin: 07/09/16 08:49 Dose: 2 tab Acetaminophen/Codeine Phosphate (Tylenol With Codeine No.3 300mg/30mg) Confirm Administered Dose 1 tab .ROUTE .STK-MED ONE Stop: 07/05/16 10:00 Last Admin: 07/05/16 10:02 Dose: Not Given Acetaminophen/Hydrocodone Bitart ([place] 325-5 Mg) 1 tab PO Q4H PRN PRN Reason: Pain Last Admin: 07/09/16 02:39 Dose: 1 tab Albuterol/Ipratropium (Duoneb 3.0-0.5 Mg/3 Ml) 3 ml NEB ONETIME ONE Stop: 07/04/16 22:24 Last Admin: 07/04/16 22:37 Dose: 3 ml Albuterol/Ipratropium (Duoneb 3.0-0.5 Mg/3 Ml) 3 ml INH Q6H WANDA Last Admin: 07/11/16 10:01 Dose: 3 ml Artificial Tears (Refresh Celluvisc) 0 each EYEBOTH Q1H PRN PRN Reason: Dry Eyes Atropine Sulfate (Atropine) 0.4 - 1 mg IV Q3H PRN PRN Reason: Copious Secretions Atropine Sulfate (Isopto Atropine 1% Ophth Soln) 0 ml SL Q1H PRN PRN Reason: coupious secretions Atropine Sulfate (Isopto Atropine 1% Ophth Soln) 0 ml SL Q1H PRN PRN Reason: coupious secretions Baclofen (Lioresal) 5 mg PO QID PRN PRN Reason: Muscle Relaxant Bisacodyl (Dulcolax) 10 mg RECTAL DAILY PRN PRN Reason: Constipation Calcium Carbonate/Glycine (Tums) 1,000 mg PO TID PRN PRN Reason: Heartburn Chlorpromazine HCl (Thorazine) 0 mg .XX Q6H PRN PRN Reason: Hiccups Cholestyramine Resin (Cholestyramine Packet) 4 gm PO WITHBREAKFAST [facility] Last Admin: 07/11/16 09:27 Dose: Not Given Dexamethasone (Dexamethasone) 0 mg .XX ONETIME PRN PRN Reason: Dyspnea Digoxin (Lanoxin) 125 mcg PO DAILY [facility] Last Admin: 07/11/16 09:27 Dose: Not Given Fentanyl (Sublimaze) 50 mcg IVPUSH Q4H PRN PRN Reason: Pain Last Admin: 07/10/16 19:03 Dose: 50 mcg Fentanyl (Duragesic) 12 mcg TRDERM Q72H [facility] Last Admin: 07/09/16 16:30 Dose: 12 mcg Ferrous Sulfate (Ferrous Sulfate) 325 mg PO BID [facility] Last Admin: 07/10/16 11:05 Dose: Not Given Fluoxetine HCl (Prozac) 20 mg PO DAILY [facility] Last Admin: 07/09/16 08:26 Dose: 20 mg Fluoxetine HCl (Prozac) 10 mg PO DAILY [facility] Last Admin: 07/11/16 09:28 Dose: Not Given Furosemide (Lasix) 40 mg IVPUSH NOW ONE Stop: 07/04/16 22:24 Last Admin: 07/04/16 22:36 Dose: 40 mg Furosemide (Lasix) 40 mg IVPUSH NOW ONE Stop: 07/04/16 23:53 Last Admin: 07/04/16 23:56 Dose: 40 mg Furosemide (Lasix) 40 mg IVPUSH TID [facility] Last Admin: 07/05/16 06:12 Dose: 40 mg Furosemide (Lasix) 80 mg IVPUSH NOW ONE Stop: 07/05/16 09:01 Last Admin: 07/05/16 10:36 Dose: Not Given Furosemide (Lasix) 40 mg IVPUSH NOW ONE Stop: 07/05/16 10:22 Last Admin: 07/05/16 11:14 Dose: 40 mg Furosemide (Lasix) 40 mg IVPUSH NOW ONE Stop: 07/05/16 14:01 Last Admin: 07/07/16 07:38 Dose: Not Given Furosemide (Lasix) 40 mg IVPUSH BID [facility] Last Admin: 07/08/16 08:31 Dose: 40 mg Furosemide (Lasix) 60 mg PO DAILY [facility] Last Admin: 07/10/16 11:06 Dose: Not Given Furosemide (Lasix) 20 mg IVPUSH ONETIME ONE Stop: 07/09/16 15:37 Last Admin: 07/09/16 15:49 Dose: 20 mg Furosemide (Lasix) 20 mg IVPUSH TID@0600,1400,1999 [facility] Last Admin: 07/10/16 11:07 Dose: 20 mg Furosemide (Lasix) 40 mg IVPUSH TID@0600,1400,1999 [facility] Last Admin: 07/11/16 05:55 Dose: 40 mg Gabapentin (Neurontin) 300 mg PO BEDTIME PRN PRN Reason: Nerve Pain Haloperidol Lactate (Haldol 2 Mg/Ml Soln) 1 mg PO Q4H PRN PRN Reason: AGITATION Haloperidol Lactate (Haldol) 1 mg SUBCUT Q4H PRN PRN Reason: AGITATION Hydrocortisone Acetate (Anucort-Hc) 25 mg RECTAL BID PRN PRN Reason: hemorroids Hydromorphone HCl (Dilaudid) 2 mg IVPUSH ONETIME STA Stop: 07/09/16 09:41 Last Admin: 07/09/16 10:15 Dose: 2 mg Hydromorphone HCl (Dilaudid) 2 mg IVPUSH ONETIME ONE Stop: 07/10/16 08:15 Last Admin: 07/10/16 08:28 Dose: 2 mg Hydroxyzine HCl (Atarax) 25 mg PO BEDTIME [facility] Last Admin: 07/10/16 20:33 Dose: Not Given Azithromycin 500 mg/ Sodium (Chloride) 250 mls @ 250 mls/hr IV Q24H [facility] Last Admin: 07/05/16 03:42 Dose: 250 mls/hr Sodium Chloride (Normal Saline) 250 mls @ 100 mls/hr IV ASDIRECTED [facility] Last Admin: 07/07/16 21:36 Dose: 100 mls/hr Sodium Chloride (Normal Saline) 250 mls @ 100 mls/hr IV ASDIRECTED [facility] Last Admin: 07/06/16 01:50 Dose: 100 mls/hr Vancomycin HCl 1,000 mg/ (Dextrose/Water) 250 mls @ 167 mls/hr IV ONETIME ONE Stop: 07/06/16 02:29 Last Admin: 07/06/16 03:35 Dose: Not Given Vancomycin HCl 1 gm/ Dextrose/ (Water) 250 mls @ 167 mls/hr IV ONETIME ONE Stop: 07/06/16 02:29 Last Admin: 07/06/16 01:55 Dose: 167 mls/hr Vancomycin HCl 1.75 gm/ Sodium (Chloride) 500 mls @ 250 mls/hr IV Q12H [facility] Last Admin: 07/08/16 10:50 Dose: Not Given Acetaminophen 1,000 mg/ Premix 100 mls @ 400 mls/hr IV Q3H PRN PRN Reason: Pain Stop: 07/11/16 12:23 Acetaminophen 1,000 mg/ Premix 100 mls @ 400 mls/hr IV Q6H PRN PRN Reason: Pain Stop: 07/11/16 12:23 Lidocaine HCl (Xylocaine 2% Jelly) 5 ml MUCMEM ONETIME ONE Stop: 07/09/16 12:42 Last Admin: 07/09/16 15:30 Dose: 5 ml Lidocaine HCl (Xylocaine 2% Viscous) 5 ml PO Q4H PRN PRN Reason: oral care Loperamide HCl (Imodium) 4 mg PO Q6H PRN PRN Reason: Diarrhea Lorazepam (Ativan) 1 mg IVPUSH ONETIME STA Stop: 07/09/16 09:43 Last Admin: 07/09/16 10:20 Dose: 1 mg Lorazepam (Ativan) 0.5 mg IVPUSH Q6H PRN PRN Reason: anxiety/agitation Last Admin: 07/10/16 08:03 Dose: 0.5 mg Magnesium Hydroxide (Milk Of Magnesia) 30 ml PO BID PRN PRN Reason: Constipation Melatonin (Melatonin) 3 mg PO BEDTIME [facility] Last Admin: 07/10/16 01:04 Dose: Not Given Metoclopramide HCl (Reglan) 10 mg PO QIDACANDBED PRN PRN Reason: Nausea/Vomiting Metolazone (Zaroxolyn) 2.5 mg PO ONETIME ONE Stop: 07/05/16 08:18 Last Admin: 07/05/16 09:51 Dose: 2.5 mg Morphine Sulfate (Morphine) 2 mg IVPUSH Q2H PRN PRN Reason: Pain Last Admin: 07/09/16 03:24 Dose: 2 mg Morphine Sulfate (Morphine) 4 mg IVPUSH ONETIME ONE Stop: 07/09/16 08:35 Last Admin: 07/09/16 08:46 Dose: 4 mg Morphine Sulfate (Morphine) 6 mg SUBCUT Q4H PRN PRN Reason: Dyspnea Morphine Sulfate (Morphine) 10 mg SUBCUT Q30M PRN PRN Reason: PAIN OR SOB Last Admin: 07/11/16 11:18 Dose: 10 mg Morphine Sulfate (Morphine 20 Mg/Ml Soln) 10 mg PO Q30M PRN PRN Reason: PAIN OR SHORTNESS OF BREATH Multivitamins/Minerals (Vitamins And Minerals) 1 tab PO DAILY [facility] Last Admin: 07/10/16 11:06 Dose: Not Given Nitroglycerin (Nitrostat) 0.4 mg SL Q5M PRN PRN Reason: Chest Pain Stop: 07/10/16 12:33 Ondansetron HCl (Zofran) 4 mg IV Q4H PRN PRN Reason: Nausea/Vomiting Pantoprazole Sodium (Protonix) 40 mg PO ACBREAKFAST [facility] Last Admin: 07/10/16 07:33 Dose: Not Given Scopolamine (Transderm-Scop) 1.5 mg TRDERM Q72H PRN PRN Reason: copious secretions Sodium Chloride (Saline Flush) 10 ml FLUSH ASDIRECTED PRN PRN Reason: Keep Vein Open Last Admin: 07/09/16 10:26 Dose: 10 ml Sodium Chloride (Saline Flush) 10 ml FLUSH ASDIRECTED PRN PRN Reason: Keep Vein Open Last Admin: 07/10/16 08:34 Dose: 10 ml Spironolactone (Aldactone) 12.5 mg PO DAILY [facility] Last Admin: 07/10/16 11:05 Dose: Not Given Tamsulosin HCl (Flomax) 0.4 mg PO DAILY [facility] Last Admin: 07/11/16 09:27 Dose: Not Given Trimethoprim/Sulfamethoxazole (Septra Ds) 1 tab PO BID [facility] Stop: 07/16/16 09:01 Last Admin: 07/11/16 09:28 Dose: Not Given Vancomycin HCl (Vancocin) Confirm Administered Dose 1 gm .ROUTE .STK-MED ONE Stop: 07/06/16 01:12 Last Admin: 07/06/16 03:32 Dose: Not Given Vancomycin HCl (Vancomycin) 0 gm IV .PHARMACY TO DOSE [facility] Warfarin Sodium (Coumadin) 2.5 mg PO DAILY [facility] Warfarin Sodium (Coumadin) 2.5 mg PO 1600 [facility] Warfarin Sodium (Coumadin Sliding Scale) 0 each PO ASDIRECTED [facility] Warfarin Sodium (Coumadin) 2.5 mg PO ONETIME ONE Stop: 07/05/16 16:01 Last Admin: 07/05/16 16:12 Dose: 2.5 mg Warfarin Sodium (Coumadin Sliding Scale) 0 each PO ASDIRECTED [facility] Warfarin Sodium (Coumadin Sliding Scale) 1 each PO 1600 [facility] Stop: 07/10/16 16:01 - Exam Physical Findings Comments:: ROS: Unobtainable Urine output: 0 mL's in the last 24 hours via Daniels catheter. Oral intake 0. Mental status: Nonverbal response, continues to yell out in pain with any touch , refusing oral medications. Refusing IV. HEENT: Dry mucous membranes; pupils equal round and reactive sluggishly Lungs: Diminished aeration throughout, no rales or rhonchi CV: Irregularly irregular rhythm regular rate diminished capillary refill 4 seconds at the nailbeds Abdomen: Protuberant, bowel sounds minimal, no rigidity : Scrotal edema persist, no cellulitis evident. Daniels catheter intact. Skin: Ecchymosis to bilateral arms from attempts at IV. Non-jaundice. Bilateral peripheral edema 3+ pitting up to the midthighs, generalized mild anasarca upper/lower extremities. Fentanyl Duragesic patch R upper shoulder blade. *Q Meaningful Use (DIS) - VTE *Q VTE Criteria *Q: - Stroke *Q Stroke Criteria *Q: - AMI *Q AMI Criteria *Q:
== END 2016-07-11 11:27 | disposition hospice, inpatient (51) | DRG 291 ==
LOC: FB.ED 21:55 → FB.MS 07-05 01:53
PROVIDERS: ADMIT Emergency Medicine; ATTEND Family Medicine
PROC: 30233N1 Transfusion of Nonautologous Red Blood Cells into Peripheral Vein, Percutaneous Approach (ICD-10-PCS; principal; 2016-07-05)
DX: I13.0 Hypertensive heart and chronic kidney disease with heart failure and stage 1 through stage 4 chronic kidney disease, or unspecified chronic kidney disease (principal); I50.43 Acute on chronic combined systolic (congestive) and diastolic (congestive) heart failure; R78.81 Bacteremia; N18.3 Chronic kidney disease, stage 3 (moderate); Z51.5 Encounter for palliative care; Z66 Do not resuscitate; E11.9 Type 2 diabetes mellitus without complications; I48.91 Unspecified atrial fibrillation; N40.0 Benign prostatic hyperplasia without lower urinary tract symptoms; F32.9 Major depressive disorder, single episode, unspecified; Z79.4 Long term (current) use of insulin; Z87.891 Personal history of nicotine dependence; M62.48 Contracture of muscle, other site; I27.2 Other secondary pulmonary hypertension; I35.0 Nonrheumatic aortic (valve) stenosis; G47.30 Sleep apnea, unspecified; Z86.14 Personal history of Methicillin resistant Staphylococcus aureus infection; Z79.01 Long term (current) use of anticoagulants; Z88.0 Allergy status to penicillin; D53.9 Nutritional anemia, unspecified; M19.90 Unspecified osteoarthritis, unspecified site; R79.1 Abnormal coagulation profile; E66.01 Morbid (severe) obesity due to excess calories; F01.50 Vascular dementia, unspecified severity, without behavioral disturbance, psychotic disturbance, mood disturbance, and anxiety
CPT/HCPCS: 71010; 87040; 94640; 96374; 96376; 99285; J1940 ×2; J7050 ×2; J7620; 36415; 36430; 72170; 73501-RT; 80048; 80053; 80162; 80202; 81001; 82565; 82962; 83605; 83880; 84484; 85025; 85610; 86140; 86850; 86900; 86901; 86920; 86922; 87077; 87186; 87804; 99284; A9270; A9270-GY; J0456; J1170; J2060; J2270; J3010; J3370; J7040; P9016